=== PATIENT | female | born 1940 | race Two or more races ===

== ENCOUNTER 2020-12-16 00:53 | Inpatient (IN) | payer MEDICARE, OTHER ==
[~2020-12-16] VITALS: Ht 157.5 cm; Wt 70.3 kg
[2020-12-16 01:10] VITALS: BP 111/78
--- NOTE | 2020-12-16 01:10 | NUR ---
ED Nurse Note: Pt wheeled into ED by coreen from home d/t sudden onset edema and bruising over bilateral legs and now appearing on stomach and chest for 2 days. Pt is on dialysis tuesdays and Saturdays, last dialysis tuesdays. Pt is AAOx3, breathing even and unlabored, left leg +3 pitting edema, right leg +1 pitting edema. Pt able to move bilateral extremities. Denies pain, denies tingling. Tachycardic on monitor HR 120s, EDMD aware
--- NOTE | 2020-12-16 01:16 | Emergency Room Report ---
History of Present Illness General Chief Complaint: Edema Present Illness HPI 80-year-old female with a history of end-stage renal disease on dialysis Friday and Friday, hypertension, hyperlipidemia here with diffuse bruising. Patient's daughter says the patient last underwent dialysis on Friday, 4 days ago. Over the past 2 days the patient's daughter has noticed that the patient has been suffering from worsening nontraumatic bruising throughout her body. The bruising is worse in the lower extremity, particularly in the left lower extremity. There has been no trauma. Denies headache, vision changes, altered mental status, fevers, chills, chest pain, palpitations, shortness of breath, back pain, abdominal pain, nausea, vomiting, diarrhea, dysuria. Patient does still make urine. Allergies: Coded Allergies: No Known Allergies (Unverified , 12/16/20) COVID-19 Screening Contact w/high risk pt: No Experienced COVID-19 symptoms?: No COVID-19 Testing performed RESIDENTIAL SALES: No Nursing Documentation-PMH Hx Cardiac Problems: Yes Hx Hypertension: Yes Hx Dialysis: Yes - LUE shunt; T, Sa Review of Systems All Other Systems: negative except mentioned in HPI Physical Exam Vital Signs Date Time Temp Pulse Resp B/P (MAP) Pulse Ox O2 Delivery O2 Flow Rate FiO2 12/16/20 01:06 97.7 120 12 111/78 (89) 100 Room Air Sp02 EP Interpretation: reviewed, normal General Appearance: no apparent distress, alert, non-toxic Head: normocephalic, atraumatic Eyes: bilateral eye normal inspection, bilateral eye PERRL ENT: hearing 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, normal pharynx, no angioedema, normal voice Neck: full range of motion, supple/symm/no masses Respiratory: chest non-tender, lungs clear, normal breath sounds, speaking full sentences Cardiovascular #1: other - Diffuse edema of the lower extremities worse in the left lower extremity. Irregularly irregular rhythm, heart rate approximately 120 bpm. Left upper extremity dialysis fistula with palpable thrill Cardiovascular #2: 2+ carotid (R), 2+ carotid (L), 2+ radial (R), 2+ radial (L), 2+ dorsalis pedis (R), 2+ dorsalis pedis (L) Gastrointestinal: normal bowel sounds, non tender, soft, non-distended, no guarding, no rebound Rectal: deferred Genitourinary: normal inspection, no CVA tenderness Musculoskeletal: back normal, normal range of motion, calf tenderness, gait/station normal, other - Diffuse swelling of the left lower extremity. Calf tenderness. Positive Homans' sign Neurologic: alert, motor strength/tone normal, oriented x3, sensory intact, responsive, speech normal Psychiatric: judgement/insight normal, memory normal, mood/affect normal, no suicidal/homicidal ideation Reflexes: 3+ bicep (R), 3+ bicep (L), 3+ tricep (R), 3+ tricep (L), 3+ knee (R), 3+ knee (L) Skin: other - Multiple regions of large ecchymosis most prominent of the left lower extremity. Ecchymosis diffusely of the right lower extremity and lower abdomen. Normal musculoskeletal range of motion Lymphatic: no adenopathy Medical Decision Making Diagnostic Impression: Primary Impression: Atrial flutter with rapid ventricular response Additional Impressions: Ecchymosis Leg swelling ER Course EKG: Atrial flutter with variable AV block. Rate 101 bpm. no ischemia, intervals WNL. Rhythm strip: patient monitored for arrhythmias - no malignant dysrhythmias, runs of PVCs, nor pauses noted Chest x-ray: Cardiomegaly. Trace effusion along the right minor fissure Ultrasound left lower extremity duplex: No evidence of deep venous thrombosis Laboratory Tests Test 12/16/20 01:20 White Blood Count 6.6 K/UL (4.8-10.8) Red Blood Count 3.12 M/UL (4.20-5.40) L Hemoglobin 8.5 G/DL (12.0-16.0) L Hematocrit 28.4 % (37.0-47.0) L Mean Corpuscular Volume 91 FL (80-99) Mean Corpuscular Hemoglobin 27.3 PG (27.0-31.0) Mean Corpuscular Hemoglobin Concent 30.0 G/DL (32.0-36.0) L Red Cell Distribution Width 18.3 % (11.6-14.8) H Platelet Count 156 K/UL (150-450) Mean Platelet Volume 8.8 FL (6.5-10.1) Neutrophils (%) (Auto) 73.7 % (45.0-75.0) Lymphocytes (%) (Auto) 11.6 % (20.0-45.0) L Monocytes (%) (Auto) 8.2 % (1.0-10.0) Eosinophils (%) (Auto) 5.3 % (0.0-3.0) H Basophils (%) (Auto) 1.3 % (0.0-2.0) Haptoglobin Pending Prothrombin Time 12.8 SEC (9.30-11.50) H Prothrombin Time INR 1.2 (0.9-1.1) H Activated Partial Thromboplast Time 25 SEC (23-33) Fibrinogen 307 mg/dL (200-400) D-Dimer 4.30 mg/L FEU (0.00-0.49) H Sodium Level 135 MMOL/L (136-145) L Potassium Level 3.9 MMOL/L (3.5-5.1) Chloride Level 99 MMOL/L (98-107) Carbon Dioxide Level 24 MMOL/L (21-32) Anion Gap 12 mmol/L (5-15) Blood Urea Nitrogen 65 mg/dL (7-18) H Creatinine 7.4 MG/DL (0.55-1.30) H Estimated Glomerular Filtration Rate 5.3 mL/min (>60) Glucose Level 142 MG/DL (74-106) H Lactic Acid Level 1.70 mmol/L (0.4-2.0) Calcium Level 9.1 MG/DL (8.5-10.1) Magnesium Level 2.3 MG/DL (1.8-2.4) Total Bilirubin 0.6 MG/DL (0.2-1.0) Aspartate Amino Transferase (AST) 34 U/L (15-37) Alanine Aminotransferase (ALT) 25 U/L (12-78) Alkaline Phosphatase 175 U/L (46-116) H Total Creatine Kinase 171 U/L (26-308) Creatine Kinase MB 2.0 NG/ML (0.0-3.6) Creatine Kinase MB Relative Index 1.1 Troponin I 0.026 ng/mL (0.000-0.056) Pro-B-Type Natriuretic Peptide > 35060 pg/mL (0-125) H Total Protein 7.3 G/DL (6.4-8.2) Albumin 3.4 G/DL (3.4-5.0) Globulin 3.9 g/dL Albumin/Globulin Ratio 0.9 (1.0-2.7) L Lipase 230 U/L (73-393) Microbiology Date/Time Source Procedure Growth Status 12/16/20 01:20 Nasopharynx SARS-CoV-2 RdRp Gene Assay - Final Complete 80-year-old female here with diffuse ecchymosis of the lower extremities and abdomen. No history of trauma. On dialysis Friday and Friday only. Last dialysis was Friday. Has been complaining of leg and abdominal ecchymosis for 2 days. Not on blood thinners. No trauma. She had significant bruising and ecchymosis bilaterally worse of the left lower extremity. Ultrasound was negative for DVT. CBC found her hemoglobin to be 8.5. No previous labs available for comparison. Platelets were within the normal range at 156. Fibrinogen was normal. No signs of DIC at this time. Potassium was 3.9. EKG showed a flutter with a rate of approximately 130 bpm. She got a bolus of 10 mg IV Cardizem with good resolution of her tachycardia. Throughout her stay in the emergency department her heart rate gradually increased again to around 120 bpm. She was given 60 mg of p.o. Cardizem. Blood pressures remained normal and she has been in no acute distress whatsoever throughout her stay. She had normal mental status and no evidence of head trauma. Troponin negative. Chest x-ray showed evidence of CHF but was otherwise normal. She had normal oxygen saturation on room air. She still makes urine and urinated just before coming to the emergency department. Millan catheter was placed and no urine has been able to be obtained at this time. Her daughter says that the patient was complaining of some dysuria. She was given ceftriaxone for suspected urinary tract infection. Rapid Covid test negative in the emergency department. Patient to be admitted to telemetry. Last Vital Signs Date Time Temp Pulse Resp B/P (MAP) Pulse Ox O2 Delivery O2 Flow Rate FiO2 12/16/20 01:06 97.7 120 12 111/78 (89) 100 Room Air Referrals: NOT CHOSEN ERIC/,REFERRING (PCP) Vinny Conn M.D. Dec 16, 2020 01:16
--- NOTE | 2020-12-16 01:20 | NUR ---
ED Nurse Note: blood, cultures, lactic sent to lab
[2020-12-16] MEDS ORDERED: dilTIAZem HCl 25mg/5ml Inj IVP ONE (01:30)
[2020-12-16 01:38] LABS: BASOPHILS % (AUTO) 1.3 % (0.0-2.0); EOSINOPHILS % (AUTO) 5.3 % (0.0-3.0); HEMATOCRIT 28.4 % (37.0-47.0); HEMOGLOBIN 8.5 G/DL (12.0-16.0); LYMPHOCYTES % (AUTO) 11.6 % (20.0-45.0); MEAN CORPUSCULAR VOLUME 91 FL (80-99); MONOCYTES % (AUTO) 8.2 % (1.0-10.0); NEUTROPHILS % (AUTO) 73.7 % (45.0-75.0); PLATELET COUNT 156 K/UL (150-450); RED BLOOD COUNT 3.12 M/UL (4.20-5.40); RED CELL DISTRIBUTION WIDTH 18.3 % (11.6-14.8); WHITE BLOOD COUNT 6.6 K/UL (4.8-10.8)
[2020-12-16 01:49] LABS: ANION GAP 12 mmol/L (5-15); BLOOD UREA NITROGEN 65 mg/dL (7-18); CALCIUM 9.1 MG/DL (8.5-10.1); CARBON DIOXIDE 24 MMOL/L (21-32); CHLORIDE 99 MMOL/L (98-107); CREATININE 7.4 MG/DL (0.55-1.30); POTASSIUM 3.9 MMOL/L (3.5-5.1); SODIUM 135 MMOL/L (136-145)
[2020-12-16 02:00] LABS: INR 1.2 (0.9-1.1)
[2020-12-16 02:02] LABS: ALANINE AMINOTRANSFERASE 25 U/L (12-78); ALBUMIN 3.4 G/DL (3.4-5.0); ALBUMIN/GLOBULIN RATIO 0.9 (1.0-2.7); ASPARTATE AMINO TRANSFERASE 34 U/L (15-37); BILIRUBIN,TOTAL 0.6 MG/DL (0.2-1.0); CREATINE KINASE 171 U/L (26-308)
--- NOTE | 2020-12-16 02:06 | NUR ---
ED Nurse Note: Kamila Mcpherson ([facility]) .
--- NOTE | 2020-12-16 02:09 | NUR ---
ED Nurse Note: COVID swab sent to lab
[2020-12-16] MEDS ORDERED: DiphenhydrAMINE 50mg/ml Inj ONE (02:13)
[2020-12-16] MEDS ORDERED: METOPROLOL SUCC25 MG ORAL (02:14)
[2020-12-16] MEDS ORDERED: LEXAPRO10 MG ORAL (02:14)
[2020-12-16] MEDS ORDERED: FISH OIL 1,0001 EAC1 ORAL (02:14)
[2020-12-16] MEDS ORDERED: DONEPEZIL HCL10 M2 ORAL (02:14)
[2020-12-16] MEDS ORDERED: CENTRUM SILVER1 EAC4 PO (02:15)
[2020-12-16] MEDS ORDERED: ACETAMINOPHEN500 M3 ORAL (02:15)
[2020-12-16] MEDS ORDERED: LORazepam Inj 2mg/ml 1ml IV ONE (02:15)
[2020-12-16] MEDS ORDERED: CALCIUM ACETAT667 M2 PO (02:15)
[2020-12-16] MEDS ORDERED: DiphenhydrAMINE 50mg/ml Inj IVP ONE (02:15)
[2020-12-16] MEDS ORDERED: AMLODIPINE BESY10 MG ORAL (02:15)
[2020-12-16] MEDS ORDERED: NAMENDA10 MG ORAL (02:15)
[2020-12-16] MEDS ORDERED: AMIODARONE HCL200 MG ORAL (02:15)
[2020-12-16] MEDS ORDERED: ATORVASTATIN CA40 MG ORAL (02:16)
[2020-12-16] MEDS ORDERED: ISOSORBIDE MONO30 M1 PO (02:16)
[2020-12-16] MEDS ORDERED: ASPIRIN-LOW81 MG ORAL (02:16)
[2020-12-16] MEDS ORDERED: OMEPRAZOLE40 M1 ORAL (02:17)
[2020-12-16 02:27] LABS: ALKALINE PHOSPHATASE 175 U/L (46-116)
--- NOTE | 2020-12-16 02:44 | NUR ---
ED Nurse Note: US tech at bedside
[2020-12-16] MEDS ORDERED: dilTIAZem HCl 60mg tab ORAL ONE (03:00)
--- NOTE | 2020-12-16 03:00 | NUR ---
NURSE NOTES: Received admission orders from Dr. Drew and all orders executed as in indicated.Dr. Gonzalez on consult for dialysis as indicated
--- NOTE | 2020-12-16 03:05 | Diagnostic Imaging Report ---
EXAM: XR Chest, 1 View CLINICAL HISTORY: AMS TECHNIQUE: Frontal view of the chest. COMPARISON: No relevant prior studies available. FINDINGS: Lungs: Trace effusion along the right minor fissure. Heart: cardiomegaly. Bones/joints: No acute findings. IMPRESSION: Cardiomegaly. Trace effusion along the right minor fissure.
--- NOTE | 2020-12-16 03:06 | NUR ---
ED Nurse Note: VRE, CRE, MRSA sent to lab
[2020-12-16] MEDS ORDERED: cefTRIAXone 1 GM in NS 55 ML IVPB ONE (03:15)
--- NOTE | 2020-12-16 03:20 | Diagnostic Imaging Report ---
EXAM: US Duplex Left Lower Extremity Veins CLINICAL HISTORY: PAIN TECHNIQUE: Real-time duplex ultrasound scan of the left lower extremity veins integrating B-mode two-dimensional vascular structure, Doppler spectral analysis, color flow Doppler imaging and compression. COMPARISON: No relevant prior studies available. FINDINGS: Deep veins: No DVT in the visualized common femoral, femoral, proximal deep femoral or popliteal veins. The veins demonstrate normal color flow, are normally compressible, with normal phasic flow and/or augmentation response. Superficial veins: No thrombus in the visualized great saphenous vein. Soft tissues: Partially visualized Miramontes's cyst is present with no measurement given but approximately 4 cm. IMPRESSION: 1. Difficult study due to leg movement during exam. 2. No DVT. 3. Partially visualized Miramontes's cyst is present with no measurement given but approximately 4 cm.
--- NOTE | 2020-12-16 03:33 | NUR ---
HAND-OFF: Report given to ZEKE Coronado.
--- NOTE | 2020-12-16 03:39 | NUR ---
NURSE NOTES: The patient is awake, non-verbal, noted with confusion and mild anxiety. A calm environment was provided as indicated.The patient is general weak, she is on room air saturating at 94%. The patient is also congested with decreasing lungs sound at the base bilaterally. The skin is edematoes +3 edema noted in the bilateral lower leg. She was noted with bruises in the inner thigh and perinal area. pictures taken and will be uploaded. The patient bilateral lower legs also has discoloration extending to the abdomen. She was admitted with a Millan catheter with no urine output noted. She also has a RFA 22 g IV line that is patent and asymptomatic. The bed in low level and call light within reach. will continue to monitor as indicated
[2020-12-16 04:00] VITALS: BP 85/68
--- NOTE | 2020-12-16 04:45 | NUR ---
TRANSFER TO FLOOR: Patient transferred to tele via gurney accompanied by RN and EMT staff as ordered, per EDMD Fabien. Report given to ZEKE Coronado. Belongings and admission packet given to ZEKE Coronado. Family and or S/O informed of transfer.
--- NOTE | 2020-12-16 06:57 | NUR ---
NURSE NOTES: The patient was able to fall asleep without any difficulty. The respiration remained at room air. will continue to monitor
--- NOTE | 2020-12-16 07:14 | NUR ---
NURSE HAND-OFF REPORT: Important Events on Shift:Alert and stable Patient Status: Diet: Pending Orders: Pending Results/Labs: Pending MD notification: Latest Vital Signs: Temperature 98.8 , Pulse 120 , B/P 137 /72 , Respiratory Rate 18 , O2 SAT 100 , Room Air, O2 Flow Rate . Vital Sign Comment: EKG Rhythm: Atrial Flutter Rhythm change?: N MD Notified?: - MD Response: Latest Huizar Fall Score: 70 Fall Risk: High Risk Safety Measures: Call light Within Reach, Bed Alarm Zone 1, Side Rails Side Rails x2, Bed position Low and Locked. Fall Precautions: Yellow Socks Yellow Gown Door Sign Patient Fall Education Report given to .
--- NOTE | 2020-12-16 07:30 | NUR ---
NURSE NOTES: Received report from Cliff/RN. Pt in bed sleeping, on room air, no distress or SOB noted. Pt was admitted around 0300. Dialysis patient, left UA AV shunt for dialysis. IV on right FA 22G, SL, patent and clean. Bed in the lowest position and locked, call light within reach, encouraged to use when needed. Side rail up X3. Will continue plan of care.
[2020-12-16 08:00] VITALS: BP 114/60
[2020-12-16 12:00] VITALS: BP 100/72
[2020-12-16] MEDS ORDERED: Metoprolol Succinate XL 25mg tab ORAL SCH (15:00)
[2020-12-16] MEDS: Amiodarone 200mg tab ORAL SCH ×2 (15:13→21:13)
--- NOTE | 2020-12-16 15:14 | Consultation ---
DATE OF CONSULTATION: 12/16/2020 NEPHROLOGY CONSULTATION CONSULTING PHYSICIAN: Hussein Gonzalez M.D. ATTENDING PHYSICIAN: Maicol Sandoval M.D. REASON FOR CONSULTATION: This is a dialysis patient. HISTORY OF PRESENT ILLNESS: This is an 80-year-old female who dialyzes at the [facility]. Her lathe operator is Dr. Menjivar. I spoke to the patient's daughter,and information is retrieved from her. The patient is confused and unable to give any information. Her dialysis regimen is Friday, , Friday. The patient was admitted due to shortness of breath. The patient has developed rapid atrial fibrillation and she is on telemetry. PAST MEDICAL HISTORY: 1. 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 2. Hypertensive cardiovascular disease. 3. Hyperlipidemia. MEDICATIONS: IV ceftriaxone, Tylenol p.r.n., diltiazem, Benadryl p.r.n., lorazepam p.r.n., Protonix. Home medications currently are not available. ALLERGIES: No known allergies. FAMILY HISTORY: Unremarkable. SOCIAL HISTORY: She lives at home. HABITS: She is a nonsmoker, nondrinker. There is no history of illicit drug abuse. REVIEW OF SYSTEMS: Currently unable to obtain. She is very confused. PHYSICAL EXAMINATION: GENERAL: This is an elderly female who is in no acute distress. VITAL SIGNS: Blood pressure 114/60, pulse 110 to 120, rapid AFib, respirations 22, temperature 96.7 Fahrenheit, oral. HEENT: The head is normocephalic and atraumatic. Pupils are equal, round, and reactive to light and accommodation. NECK: Supple. Trachea midline. There was no lymphadenopathy or thyromegaly. LUNGS: Bilateral few wheezes. HEART: Tachycardic, irregularly irregular. ABDOMEN: Soft and nontender. Bowel sounds were active. EXTREMITIES: She has 2+ ankle edema. She has a left upper arm AV fistula with thrill and bruit. LABORATORY AND ANCILLARY DATA: CBC, hematocrit 28.4, otherwise CBC within normal limits. Chemistry, sodium 135, potassium 3.9, BUN 65, creatinine 7.4, glucose 142, albumin 3.4. Chest x-ray, trace effusion along the right minor fissure, cardiomegaly, no acute findings. ASSESSMENT: 1. 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 2. Hypertensive cardiovascular disease. 3. Hyperlipidemia. 4. Rapid atrial fibrillation. PLAN: Since the patient is currently hemodynamically unstable, we will try to dialyze her when her heart rate is more stable. Thank you, Dr. Sandoval, for letting me participate in the care of this patient. Hussein Gonzalez M.D. DR: HEIDY JOB#: [id number] CC: VERONICA
--- NOTE | 2020-12-16 15:25 | History & Physical ---
History and Physical History & Physicial 80-year-old female presents with shortness of breath and rapid swab for COVID negative. The patient has developed rapid atrial fibrillation and is also on HD at an outpatient center patient confused overall PAST MEDICAL HISTORY: 1. 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 2. Hypertensive cardiovascular disease. 3. Hyperlipidemia. 4. Dementia 5. GERD MEDS reviewed and reconciled Social; at home; retired; has dementia and nonsmoker nondrinker Physical WDWN NAD clear breath sounds bilaterally without rhonchi or wheeze [id number] tachy without MRG NABS nontender no HSM no CCE nonfocal vitals with hr 120 normal vitals otherwise Laboratory Tests 12/16/20 01:20: White Blood Count 6.6, Red Blood Count 3.12L, Hemoglobin 8.5L, Hematocrit 28.4L, Mean Corpuscular Volume 91, Mean Corpuscular Hemoglobin 27.3, Mean Corpuscular Hemoglobin Concent 30.0L, Red Cell Distribution Width 18.3H, Platelet Count 156, Mean Platelet Volume 8.8, Neutrophils (%) (Auto) 73.7, Lymphocytes (%) (Auto) 11.6L, Monocytes (%) (Auto) 8.2, Eosinophils (%) (Auto) 5.3H, Basophils (%) (Auto) 1.3, Differential Total Cells Counted 100, Neutrophils % (Manual) 72, Lymphocytes % (Manual) 12L, Monocytes % (Manual) 9, Eosinophils % (Manual) 7H, Basophils % (Manual) 0, Band Neutrophils 0, Platelet Estimate Adequate, Platelet Morphology Normal, Polychromasia 1+, Hypochromasia 1+, Anisocytosis 1+, Haptoglobin [Pending], Prothrombin Time 12.8H, Prothromb Time International Ratio 1.2H, Activated Partial Thromboplast Time 25, Fibrinogen 307, D-Dimer 4.30H, Sodium Level 135L, Potassium Level 3.9, Chloride Level 99, Carbon Dioxide Level 24, Anion Gap 12, Blood Urea Nitrogen 65H, Creatinine 7.4H, Estimat Glomerular Filtration Rate 5.3, Glucose Level 142H, Lactic Acid Level 1.70, Calcium Level 9.1, Magnesium Level 2.3, Total Bilirubin 0.6, Aspartate Amino Transf (AST/SGOT) 34, Alanine Aminotransferase (ALT/SGPT) 25, Alkaline Phosphatase 175H, Total Creatine Kinase 171, Creatine Kinase MB 2.0, Creatine Kinase MB Relative Index 1.1, Troponin I 0.026, Pro-B-Type Natriuretic Peptide > 05411M, Total Protein 7.3, Albumin 3.4, Globulin 3.9, Albumin/Globulin Ratio 0.9L, Lipase 230 IMPRESSION dyspnea ESRD pleural effusion dementia chronic encephalopathy hyperglycemia anemia PLAN HD per renal resume meds monitor vitals EP to see monitor for bleeding tele care for now d/w nursing d/w consultants impression, plan, and exam edited and reviewed in detail care discussed with Maicol Noble MD Dec 16, 2020 15:25
[2020-12-16 16:00] VITALS: BP 115/62
[2020-12-16] MEDS ORDERED: Digoxin 0.5mg/2ml Inj IVP SCH (16:15)
--- NOTE | 2020-12-16 16:20 | Cardiac Electrophysiology PN ---
Subjective Subjective [id number] Objective Last 24 Hour Vital Signs Date Time Temp Pulse Resp B/P (MAP) Pulse Ox O2 Delivery O2 Flow Rate FiO2 12/16/20 15:13 120 100/72 12/16/20 12:00 96.4 81 18 100/72 (81) 92 12/16/20 12:00 120 12/16/20 09:00 Room Air 12/16/20 08:00 96.7 67 18 114/60 (78) 90 12/16/20 08:00 80 12/16/20 04:45 98.8 120 18 137/72 100 Room Air 12/16/20 04:00 98.6 120 23 85/68 (74) 94 12/16/20 04:00 120 12/16/20 03:39 Room Air 12/16/20 03:09 122 138/70 12/16/20 03:06 120 18 132/68 100 12/16/20 02:36 103 18 138/81 100 12/16/20 01:28 112 111/52 12/16/20 01:10 120 18 12/16/20 01:10 97.7 120 18 111/78 100 Room Air 12/16/20 01:06 97.7 120 12 111/78 (89) 100 Room Air Intake and Output 12/15/20 12/16/20 19:00 07:00 Intake Total 100 ml Output Total 0 ml Balance 100 ml Intake Oral 100 ml Output Urine Total 0 ml # Bowel Movements 1 Laboratory Tests Test 12/16/20 01:20 White Blood Count 6.6 K/UL (4.8-10.8) Red Blood Count 3.12 M/UL (4.20-5.40) L Hemoglobin 8.5 G/DL (12.0-16.0) L Hematocrit 28.4 % (37.0-47.0) L Mean Corpuscular Volume 91 FL (80-99) Mean Corpuscular Hemoglobin 27.3 PG (27.0-31.0) Mean Corpuscular Hemoglobin Concent 30.0 G/DL (32.0-36.0) L Red Cell Distribution Width 18.3 % (11.6-14.8) H Platelet Count 156 K/UL (150-450) Mean Platelet Volume 8.8 FL (6.5-10.1) Neutrophils (%) (Auto) 73.7 % (45.0-75.0) Lymphocytes (%) (Auto) 11.6 % (20.0-45.0) L Monocytes (%) (Auto) 8.2 % (1.0-10.0) Eosinophils (%) (Auto) 5.3 % (0.0-3.0) H Basophils (%) (Auto) 1.3 % (0.0-2.0) Differential Total Cells Counted 100 Neutrophils % (Manual) 72 % (45-75) Lymphocytes % (Manual) 12 % (20-45) L Monocytes % (Manual) 9 % (1-10) Eosinophils % (Manual) 7 % (0-3) H Basophils % (Manual) 0 % (0-2) Band Neutrophils 0 % (0-8) Platelet Estimate Adequate Platelet Morphology Normal Polychromasia 1+ Hypochromasia 1+ Anisocytosis 1+ Haptoglobin Pending Prothrombin Time 12.8 SEC (9.30-11.50) H Prothromb Time International Ratio 1.2 (0.9-1.1) H Activated Partial Thromboplast Time 25 SEC (23-33) Fibrinogen 307 mg/dL (200-400) D-Dimer 4.30 mg/L FEU (0.00-0.49) H Sodium Level 135 MMOL/L (136-145) L Potassium Level 3.9 MMOL/L (3.5-5.1) Chloride Level 99 MMOL/L (98-107) Carbon Dioxide Level 24 MMOL/L (21-32) Anion Gap 12 mmol/L (5-15) Blood Urea Nitrogen 65 mg/dL (7-18) H Creatinine 7.4 MG/DL (0.55-1.30) H Estimat Glomerular Filtration Rate 5.3 mL/min (>60) Glucose Level 142 MG/DL (74-106) H Lactic Acid Level 1.70 mmol/L (0.4-2.0) Calcium Level 9.1 MG/DL (8.5-10.1) Magnesium Level 2.3 MG/DL (1.8-2.4) Total Bilirubin 0.6 MG/DL (0.2-1.0) Aspartate Amino Transf (AST/SGOT) 34 U/L (15-37) Alanine Aminotransferase (ALT/SGPT) 25 U/L (12-78) Alkaline Phosphatase 175 U/L (46-116) H Total Creatine Kinase 171 U/L (26-308) Creatine Kinase MB 2.0 NG/ML (0.0-3.6) Creatine Kinase MB Relative Index 1.1 Troponin I 0.026 ng/mL (0.000-0.056) Pro-B-Type Natriuretic Peptide > 61465 pg/mL (0-125) H Total Protein 7.3 G/DL (6.4-8.2) Albumin 3.4 G/DL (3.4-5.0) Globulin 3.9 g/dL Albumin/Globulin Ratio 0.9 (1.0-2.7) L Lipase 230 U/L (73-393) Microbiology Date/Time Source Procedure Growth Status 12/16/20 01:20 Nasopharynx SARS-CoV-2 RdRp Gene Assay - Final Complete Devon Zuluaga MD Dec 16, 2020 16:20
[2020-12-16] MEDS: Memantine 10mg tab ORAL SCH (18:09)
--- NOTE | 2020-12-16 18:14 | Consultation ---
DATE OF CONSULTATION: 12/16/2020 CARDIAC ELECTROPHYSIOLOGY CONSULTATION CONSULTING PHYSICIAN: Devon Zuluaga MD REFERRING PHYSICIAN: Maicol Sandoval MD REASON FOR CONSULTATION: Atrial flutter with rapid ventricular response. HISTORY OF PRESENT ILLNESS: The patient is a very pleasant 80-year-old lady with history of hypertension and end-stage renal disease on hemodialysis as well as history of atrial flutter, who is already on amiodarone and metoprolol as an outpatient. The patient presented to the emergency room with diffuse bruising. This bruising is mostly in the lower extremity, mostly on the left side. The patient in the ER was noted to be tachycardic, heart rate in the 120s, and EKG confirmed atrial flutter with rapid ventricular response. REVIEW OF SYSTEMS: Negative other than what was mentioned in the history of present illness. PAST MEDICAL HISTORY: As mentioned above. FAMILY HISTORY: Noncontributory. SOCIAL HISTORY: She lives at home. Does smoke or drink alcohol. PHYSICAL EXAMINATION: VITAL SIGNS: Show blood pressure of 100/72, pulse is 120, respirations 18, and temperature 96.4. HEAD AND NECK: Shows mild JVD. LUNGS: Decreased breath sounds. CARDIOVASCULAR: Shows tachycardic, S1 and S2 with no gallop or murmur. ABDOMEN: Soft. EXTREMITIES: Bilateral ecchymosis of lower extremity, left more than right. LABORATORY DATA: Labs show white count of 6.2, hemoglobin 8.5, hematocrit 28.5, and platelet count of 156,000. Sodium 135, potassium 3.9, BUN of 64, creatinine 7.4, and glucose of 114. Troponin is negative. BNP is more than 35,000. ASSESSMENT AND PLAN: 1. Atrial flutter with rapid ventricular response. I will start the patient on digoxin 0.125 mg p.o. daily. We will check a digoxin level the day after tomorrow in view of renal failure being on dialysis as well as interaction with amiodarone. In the meantime, increase metoprolol to 50 mg b.i.d. and discontinue amlodipine. Continue amiodarone 200 mg b.i.d. The patient is off anticoagulation due to diffuse bilateral ecchymosis. Hemoglobin of 8.5. 2. End-stage renal disease, on hemodialysis. 3. Hypertension. Again, discontinue amlodipine to maximize beta-kp to b.i.d. for better rate control of atrial flutter. 4. Hyperlipidemia, on Lipitor. In the long run, the patient would benefit from atrial flutter ablation, which is truly the approach. 5. Diffuse ecchymoses of lower extremity, currently off anticoagulation. Thank you very much for allowing me to participate in the care of this patient. Please do not hesitate to contact me for any questions regarding my evaluation. Devon Zuluaga M.D. DR: Yvette JOB#: [id number] CC:
--- NOTE | 2020-12-16 19:22 | NUR ---
NURSE HAND-OFF REPORT: Important Events on Shift:Pt's HR 121 today, Dr Zuluaga is aware, medications given. Patient Status: Stable Diet: Renal Pending Orders: Pending Results/Labs: Pending MD notification: Latest Vital Signs: Temperature 97.6 , Pulse 122 , B/P 115 /62 , Respiratory Rate 20 , O2 SAT 94 , Room Air, O2 Flow Rate . Vital Sign Comment: Stable EKG Rhythm: Atrial Fibrillation Rhythm change?: N MD Notified?: - MD Response: Latest Huizar Fall Score: 70 Fall Risk: High Risk Safety Measures: Call light Within Reach, Bed Alarm Zone 1, Side Rails Side Rails x2, Bed position Low and Locked. Fall Precautions: Yellow Socks Yellow Gown Door Sign Patient Fall Education Report given to Cliff/RN.
--- NOTE | 2020-12-16 19:40 | NUR ---
NURSE NOTES: The patient is alert and oriented x2 and is verbally responsive in [place]ian. The Resp is even and unlabored and she is on room air.The patient is essentially bedbound and was noted with swelling bilateral legs that was raised up and supported with a pillow.The left upper arm has an A/v graft for dialysis.The patient has a Right FA 22g that is patent and asymptomatic. The bed in low and locked position and the call light within easy reach.Will continue to monitor as indicated
[2020-12-16 20:00] VITALS: BP 114/65
[2020-12-16] MEDS: Atorvastatin 20mg tab ORAL SCH (21:13)
[2020-12-16] MEDS: Metoprolol Tartrate 50mg tab ORAL SCH (21:13)
[2020-12-16] MEDS ORDERED: Acetaminophen 500mg (ES) tab ORAL SCH (22:00)
[2020-12-17] VITALS: BP 111/56
[2020-12-17 04:00] VITALS: BP 113/64
--- NOTE | 2020-12-17 04:10 | NUR ---
NURSE NOTES: The patient is able to sleep all night long and does 't appear to be in any distress. She was helped with turning and re-positioning as indicated.Will continue to monition as indicated
--- NOTE | 2020-12-17 07:06 | NUR ---
NURSE HAND-OFF REPORT: Important Events on Shift:Cooperative with her care and slept about 8 hrs last night Patient Status: Diet: Pending Orders: Pending Results/Labs: Pending MD notification: Latest Vital Signs: Temperature 98.6 , Pulse 107 , B/P 113 /64 , Respiratory Rate 20 , O2 SAT 93 , Room Air, O2 Flow Rate . Vital Sign Comment: EKG Rhythm: Atrial Fibrillation Rhythm change?: N MD Notified?: - MD Response: Latest Huizar Fall Score: 70 Fall Risk: High Risk Safety Measures: Call light Within Reach, Bed Alarm Zone 1, Side Rails Side Rails x2, Bed position Low and Locked. Fall Precautions: Yellow Socks Yellow Gown Door Sign Patient Fall Education Report given to .
--- NOTE | 2020-12-17 07:16 | NUR ---
NURSE NOTES: Received report from Cliff/RN. Pt in bed sleeping, on room air, no distress or SOB noted. Patient's HR improved during the night 102-103. Dialysis patient, left UA AV shunt for dialysis. IV on right FA 22G, SL, patent and clean. Bed in the lowest position and locked, call light within reach, encouraged to use when needed. Side rail up X3. Will continue plan of care.
[2020-12-17 07:48] LABS: BASOPHILS % (AUTO) 0.8 % (0.0-2.0); EOSINOPHILS % (AUTO) 4.5 % (0.0-3.0); HEMATOCRIT 27.4 % (37.0-47.0); HEMOGLOBIN 8.3 G/DL (12.0-16.0); LYMPHOCYTES % (AUTO) 15.1 % (20.0-45.0); MEAN CORPUSCULAR VOLUME 91 FL (80-99); MONOCYTES % (AUTO) 9.9 % (1.0-10.0); NEUTROPHILS % (AUTO) 69.7 % (45.0-75.0); PLATELET COUNT 152 K/UL (150-450); RED BLOOD COUNT 3.02 M/UL (4.20-5.40); RED CELL DISTRIBUTION WIDTH 18.2 % (11.6-14.8); WHITE BLOOD COUNT 5.1 K/UL (4.8-10.8)
[2020-12-17 08:00] VITALS: BP 125/54
[2020-12-17 08:21] LABS: CALCIUM 8.8 MG/DL (8.5-10.1); CREATININE 8.1 MG/DL (0.55-1.30); POTASSIUM 4.9 MMOL/L (3.5-5.1)
[2020-12-17] MEDS ORDERED: Heparin Sod 1000 units/ml 10ml IV PRN (09:00)
[2020-12-17] MEDS: Metoprolol Tartrate 50mg tab ORAL SCH ×2 (09:00→20:43)
[2020-12-17] MEDS: Aspirin EC 81mg tab ORAL SCH (09:10)
[2020-12-17] MEDS: Donepezil 10mg tab ORAL SCH (09:10)
[2020-12-17] MEDS: Memantine 10mg tab ORAL SCH ×2 (09:10→17:24)
[2020-12-17] MEDS: Amiodarone 200mg tab ORAL SCH ×2 (09:11→20:43)
[2020-12-17] MEDS: cefTRIAXone 1gm/D5W 55ml IVPB SCH ×2 (09:13)
[2020-12-17] MEDS: Digoxin 0.125mg tab ORAL SCH (09:13)
--- NOTE | 2020-12-17 09:15 | NUR ---
PT EVALUATION NOTE Patient seen for initial evaluation and treatment initiated. Patient presents with decreased LE strength and balance which impairs patient's ability to perform mobility skills safely. Patient requires min assist for bed mobility and mod assist for transfers with FWW. Patient able to take small steps from the bed to the bedside chair with min/mod assist and FWW. Patient will benefit from skilled inpatient PT intervention to increase strength and postural stability for improved level of functional mobility and safety. Recommend discharge to SNF for continued rehab vs home with home PT and family assistance depending on patient's progress. Addendum: 12/17/20 at 1007 by RAMÓN SALES PT Amended: Links added.
--- NOTE | 2020-12-17 09:23 | General Progress Note ---
Subjective ROS Limited/Unobtainable: No Constitutional: Reports: malaise, weakness HEENT: Reports: no symptoms Cardiovascular: Reports: no symptoms Respiratory: Reports: no symptoms Gastrointestinal/Abdominal: Reports: no symptoms Genitourinary: Reports: no symptoms Neurologic/Psychiatric: Reports: no symptoms Endocrine: Reports: no symptoms Hematologic/Lymphatic: Reports: no symptoms Allergies: Coded Allergies: No Known Allergies (Unverified , 12/16/20) All Systems: reviewed and negative except above Subjective no events. w/o complaints. eating breakfast. tolerating pos. converted back to sinus. denies chest pain or sob Objective Last 24 Hour Vital Signs Date Time Temp Pulse Resp B/P (MAP) Pulse Ox O2 Delivery O2 Flow Rate FiO2 12/17/20 09:13 95 12/17/20 09:00 95 125/54 12/17/20 04:00 98.6 107 20 113/64 (80) 93 12/17/20 04:00 107 12/17/20 00:00 104 12/17/20 00:00 98.1 104 18 111/56 (74) 92 12/16/20 21:13 116 114/65 12/16/20 21:00 Room Air 12/16/20 20:00 98.8 116 21 114/65 (81) 94 12/16/20 20:00 99 12/16/20 16:40 122 12/16/20 16:00 97.6 121 20 115/62 (79) 94 12/16/20 16:00 121 12/16/20 15:13 120 100/72 12/16/20 12:00 96.4 81 18 100/72 (81) 92 12/16/20 12:00 120 Intake and Output 12/16/20 12/17/20 19:00 07:00 Intake Total 420 ml 330 ml Balance 420 ml 330 ml Intake Oral 420 ml 330 ml # Voids 1 1 Laboratory Tests 12/17/20 07:10: White Blood Count 5.1, Red Blood Count 3.02L, Hemoglobin 8.3L, Hematocrit 27.4L, Mean Corpuscular Volume 91, Mean Corpuscular Hemoglobin 27.6, Mean Corpuscular Hemoglobin Concent 30.4L, Red Cell Distribution Width 18.2H, Platelet Count 152, Mean Platelet Volume 8.1, Neutrophils (%) (Auto) 69.7, Lymphocytes (%) (Auto) 15.1L, Monocytes (%) (Auto) 9.9, Eosinophils (%) (Auto) 4.5H, Basophils (%) (Auto) 0.8, Sodium Level 134L, Potassium Level 4.9, Chloride Level 99, Carbon Dioxide Level 22, Anion Gap 13, Blood Urea Nitrogen 67H, Creatinine 8.1H, Estimat Glomerular Filtration Rate 4.7, Glucose Level 80, Calcium Level 8.8, Troponin I 0.025, Thyroid Stimulating Hormone (TSH) 2.379, Free Thyroxine 1.17, Digoxin Level 1.3 Height (Feet): 5 Height (Inches): 2.00 Weight (Pounds): 155 General Appearance: WD/WN, alert Neck: supple Cardiovascular: regular rhythm Respiratory/Chest: lungs clear Abdomen: normal bowel sounds, non tender, soft, no organomegaly Edema: no edema noted Arm (L), no edema noted Arm (R) 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, no motor/sensory deficits, alert, responsive Skin: normal pigmentation Assessment/Plan Problem List: (1) Hypertension ICD Codes: I10 - Essential (primary) hypertension SNOMED: 11660863 (2) Hyperlipidemia ICD Codes: E78.5 - Hyperlipidemia, unspecified SNOMED: 31544620 (3) ESRD (end-stage renal disease) due to SLE ICD Codes: M32.14 - Glomerular disease in systemic lupus erythematosus; N18.6 - End stage renal disease SNOMED: 62334582, 87552981 (4) Atrial flutter with rapid ventricular response ICD Codes: I48.92 - Unspecified atrial flutter SNOMED: 4708309, 8490561 Status: stable Assessment/Plan: tele amiodarone antiplt rx iv abx monitor cxr dvt/stress ulcer prophylaxis Anil Reynoso MD Dec 17, 2020 09:22
--- NOTE | 2020-12-17 09:45 | NUR ---
NURSE NOTES: Called Dr Sandoval to let him know pt has blood in her urine. Urinalysis was ordered, collected by the nurse.
[2020-12-17 11:46] LABS: APPEARANCE,URINE TURBID; BILIRUBIN, URINE NEGATIVE (NEGATIVE); GLUCOSE, URINE (UA) 1+ (NEGATIVE); KETONES,URINE NEGATIVE (NEGATIVE); LEUKOCYTE ESTERASE ,URINE 1+ (NEGATIVE); NITRITE,URINE NEGATIVE (NEGATIVE); PH,URINE 8 (4.5-8.0); PROTEIN,URINE 4+ (NEGATIVE); UROBILINOGEN,URINE NORMAL MG/DL (0.0-1.0)
[2020-12-17 11:47] LABS: COLOR,URINE RED
[2020-12-17 12:00] VITALS: BP 118/57
--- NOTE | 2020-12-17 13:26 | Pulmonology Progress Note ---
Subjective ROS Limited/Unobtainable: No Allergies: Coded Allergies: No Known Allergies (Unverified , 12/16/20) All Systems: reviewed and negative except above Subjective care noted no distress in afib on monitor Objective Last 24 Hour Vital Signs Date Time Temp Pulse Resp B/P (MAP) Pulse Ox O2 Delivery O2 Flow Rate FiO2 12/17/20 12:00 101 12/17/20 12:00 97.4 114 18 118/57 (77) 96 12/17/20 09:13 95 12/17/20 09:00 95 125/54 12/17/20 09:00 Room Air 12/17/20 08:00 118 12/17/20 08:00 98.7 95 19 125/54 (77) 93 12/17/20 04:00 98.6 107 20 113/64 (80) 93 12/17/20 04:00 107 12/17/20 00:00 104 12/17/20 00:00 98.1 104 18 111/56 (74) 92 12/16/20 21:13 116 114/65 12/16/20 21:00 Room Air 12/16/20 20:00 98.8 116 21 114/65 (81) 94 12/16/20 20:00 99 12/16/20 16:40 122 12/16/20 16:00 97.6 121 20 115/62 (79) 94 12/16/20 16:00 121 12/16/20 15:13 120 100/72 Intake and Output 12/16/20 12/17/20 19:00 07:00 Intake Total 420 ml 330 ml Balance 420 ml 330 ml Intake Oral 420 ml 330 ml # Voids 1 1 Objective WDWN NAD clear breath sounds bilaterally without rhonchi or wheeze S1S2 iRRR without MRG NABS nontender no CCE nonfocal Microbiology Date/Time Source Procedure Growth Status 12/16/20 01:20 Nasopharynx SARS-CoV-2 RdRp Gene Assay - Final Complete Laboratory Tests 12/17/20 07:10: White Blood Count 5.1, Red Blood Count 3.02L, Hemoglobin 8.3L, Hematocrit 27.4L, Mean Corpuscular Volume 91, Mean Corpuscular Hemoglobin 27.6, Mean Corpuscular Hemoglobin Concent 30.4L, Red Cell Distribution Width 18.2H, Platelet Count 152, Mean Platelet Volume 8.1, Neutrophils (%) (Auto) 69.7, Lymphocytes (%) (Auto) 15.1L, Monocytes (%) (Auto) 9.9, Eosinophils (%) (Auto) 4.5H, Basophils (%) (Auto) 0.8, Sodium Level 134L, Potassium Level 4.9, Chloride Level 99, Carbon Dioxide Level 22, Anion Gap 13, Blood Urea Nitrogen 67H, Creatinine 8.1H, Estimat Glomerular Filtration Rate 4.7, Glucose Level 80, Calcium Level 8.8, Troponin I 0.025, Thyroid Stimulating Hormone (TSH) 2.379, Free Thyroxine 1.17, Digoxin Level 1.3 12/17/20 09:50: Urine Color Red, Urine Appearance Turbid, Urine pH 8, Urine Specific [place] 1.010, Urine Protein 4+H, Urine Glucose (UA) 1+H, Urine Ketones Negative, Urine Blood 5+H, Urine Nitrite Negative, Urine Bilirubin Negative, Urine Urobilinogen Normal, Urine Leukocyte Esterase 1+H, Urine RBC TntcH, Urine WBC 2-4, Urine Squamous Epithelial Cells Few, Urine Bacteria Few 12/17/20 12:45: Hepatitis B Surface Antigen [Pending] Current Medications Medications (Trade) Dose Ordered Sig/Mohit Route PRN Reason Start Time Stop Time Status Last Admin Dose Admin Acetaminophen (Tylenol) 650 mg Q4H PRN ORAL Mild Pain (Pain Scale 1-3) 12/16/20 06:45 01/15/21 06:44 Al Hydroxide/Mg Hydroxide (Mylanta) 30 ml Q4H PRN ORAL Abdominal cramps 12/16/20 06:45 01/15/21 06:44 Amiodarone HCl (Cordarone) 200 mg EVERY 12 HOURS ORAL 12/16/20 15:00 03/16/21 14:59 12/17/20 09:11 Aspirin (Ecotrin) 81 mg DAILY ORAL 12/17/20 09:00 01/31/21 08:59 12/17/20 09:10 Atorvastatin Calcium (Lipitor) 40 mg BEDTIME ORAL 12/16/20 21:00 03/16/21 20:59 12/16/20 21:13 Ceftriaxone Sodium 1 gm/ Dextrose 55 ml @ 110 mls/hr DAILY IVPB 12/17/20 09:00 12/24/20 08:59 12/17/20 09:13 Digoxin (Lanoxin) 0.125 mg DAILY ORAL 12/17/20 09:00 03/17/21 08:59 12/17/20 09:13 Donepezil HCl (Aricept) 10 mg DAILY ORAL 12/17/20 09:00 01/16/21 08:59 12/17/20 09:10 Escitalopram Oxalate (Lexapro) 5 mg DAILY ORAL 12/16/20 15:00 01/15/21 14:59 12/17/20 09:14 Heparin Sodium (Porcine) (Heparin Sod 1000 units/ml 10ml) 2,000 unit ONCE PRN IV dialysis 12/17/20 09:00 12/17/20 23:59 Memantine (Namenda) 10 mg TWICE A DAY ORAL 12/16/20 18:00 01/15/21 17:59 12/17/20 09:10 Metoprolol Tartrate (Lopressor) 50 mg Q12HR ORAL 12/16/20 21:00 03/16/21 20:59 12/16/20 21:13 Pantoprazole (Protonix) 40 mg DAILY ORAL 12/16/20 09:00 01/15/21 08:59 12/17/20 09:10 Sodium Chloride 1,000 ml @ 500 mls/hr Q2H PRN IVLG sbp<90 during hd 12/17/20 09:00 12/17/20 23:59 Assessment/Plan Assessment/Plan IMPRESSION dyspnea ESRD pleural effusion dementia chronic encephalopathy hyperglycemia anemia afib cardiomegaly PLAN HD per renal resume meds monitor vitals EP to see monitor for bleeding tele care for now d/w nursing d/w consultants rate control nutrition monitor fluid status impression, plan, and exam edited and reviewed in detail care discussed with Maicol Noble MD Dec 17, 2020 13:26
[2020-12-17 16:00] VITALS: BP 115/46
--- NOTE | 2020-12-17 16:06 | Nephrology Progress Note ---
Assessment/Plan Plan A. Fib - per Card. ESRD - HD today Subjective Subjective No new c/o Objective Objective Last 24 Hour Vital Signs Date Time Temp Pulse Resp B/P (MAP) Pulse Ox O2 Delivery O2 Flow Rate FiO2 12/17/20 12:00 101 12/17/20 12:00 97.4 114 18 118/57 (77) 96 12/17/20 09:13 95 12/17/20 09:00 95 125/54 12/17/20 09:00 Room Air 12/17/20 08:00 118 12/17/20 08:00 98.7 95 19 125/54 (77) 93 12/17/20 04:00 98.6 107 20 113/64 (80) 93 12/17/20 04:00 107 12/17/20 00:00 104 12/17/20 00:00 98.1 104 18 111/56 (74) 92 12/16/20 21:13 116 114/65 12/16/20 21:00 Room Air 12/16/20 20:00 98.8 116 21 114/65 (81) 94 12/16/20 20:00 99 12/16/20 16:40 122 Intake and Output 12/16/20 12/17/20 19:00 07:00 Intake Total 420 ml 330 ml Balance 420 ml 330 ml Intake Oral 420 ml 330 ml # Voids 1 1 Laboratory Tests 12/17/20 07:10: White Blood Count 5.1, Red Blood Count 3.02L, Hemoglobin 8.3L, Hematocrit 27.4L, Mean Corpuscular Volume 91, Mean Corpuscular Hemoglobin 27.6, Mean Corpuscular Hemoglobin Concent 30.4L, Red Cell Distribution Width 18.2H, Platelet Count 152, Mean Platelet Volume 8.1, Neutrophils (%) (Auto) 69.7, Lymphocytes (%) (Auto) 15.1L, Monocytes (%) (Auto) 9.9, Eosinophils (%) (Auto) 4.5H, Basophils (%) (Auto) 0.8, Sodium Level 134L, Potassium Level 4.9, Chloride Level 99, Carbon Dioxide Level 22, Anion Gap 13, Blood Urea Nitrogen 67H, Creatinine 8.1H, Estimat Glomerular Filtration Rate 4.7, Glucose Level 80, Calcium Level 8.8, Troponin I 0.025, Thyroid Stimulating Hormone (TSH) 2.379, Free Thyroxine 1.17, Digoxin Level 1.3 12/17/20 09:50: Urine Color Red, Urine Appearance Turbid, Urine pH 8, Urine Specific [place] 1.0 10, Urine Protein 4+H, Urine Glucose (UA) 1+H, Urine Ketones Negative, Urine Blood 5+H, Urine Nitrite Negative, Urine Bilirubin Negative, Urine Urobilinogen Normal, Urine Leukocyte Esterase 1+H, Urine RBC TntcH, Urine WBC 2-4, Urine Squamous Epithelial Cells Few, Urine Bacteria Few 12/17/20 12:45: Hepatitis B Surface Antigen [Pending] Height (Feet): 5 Height (Inches): 2.00 Weight (Pounds): 155 Objective CV Irr Lungs CTA Abd SNT. BS + E No CCE Hussein Gonzalez MD Dec 17, 2020 16:06
--- NOTE | 2020-12-17 19:17 | NUR ---
NURSE HAND-OFF REPORT: Important Events on Shift:Pt had dialysis today. Patient Status: Restless Diet: Renal Pending Orders: Pending Results/Labs: Pending MD notification: Latest Vital Signs: Temperature 97.1 , Pulse 79 , B/P 115 /46 , Respiratory Rate 18 , O2 SAT 93 , Room Air, O2 Flow Rate . Vital Sign Comment: Stable EKG Rhythm: Atrial Fibrillation Rhythm change?: N MD Notified?: - MD Response: Latest Huizar Fall Score: 70 Fall Risk: High Risk Safety Measures: Call light Within Reach, Bed Alarm Zone 1, Side Rails Side Rails x2, Bed position Low and Locked. Fall Precautions: Yellow Socks Yellow Gown Door Sign Patient Fall Education Report given to Alexandra/ZEKE.
--- NOTE | 2020-12-17 19:23 | NUR ---
NURSE NOTES: Report received from ZEKE Hardin. Patient is awake on bed, alert and oriented x 2. traffic monitor specialist is in place, shows afib with HR of 90's. On renal diet, instructed and amenable. On room air, sating 95-96% with no shortness of breath reported. Patient is ambulatory but needs assistance, fall prevention instructed. IV site is on right forearm g-22 saline locked that is patent and intact. IV access is on left upper arm AV shunt. Safety measures are in place, bed in lowest and locked position, side rails up x 2, call light button and bedside table within reach, instructed to call for any assistance needed. Will continue plan of care.
[2020-12-17 20:00] VITALS: BP 124/69
[2020-12-17] MEDS: Atorvastatin 20mg tab ORAL SCH (20:43)
[2020-12-18] VITALS: BP 125/52
--- NOTE | 2020-12-18 00:10 | NUR ---
NURSE NOTES: Blood pressure has been stable, no desaturation on room air and no chest pain complaints. Patient was able to reposition by herself.
--- NOTE | 2020-12-18 03:05 | NUR ---
NURSE NOTES: Patient had a BM, soft, brownish and in moderate amount, noted that there's a blood on it, will order OBS. Will closely monitor.
[2020-12-18 04:00] VITALS: BP 118/65
--- NOTE | 2020-12-18 06:22 | NUR ---
NURSE NOTES: Informed Dr. Sandoval about the blood on patient's BM, awaiting for additional orders.
--- NOTE | 2020-12-18 06:30 | NUR ---
NURSE NOTES: Dr. Sandoval ordered CBC, will carry out.
--- NOTE | 2020-12-18 07:38 | NUR ---
NURSE HAND-OFF REPORT: Important Events on Shift: Patient had a BM with blood on it, sample collected and sent to lab. Blood pressure has been stable and no SOB noted the whole shift Patient Status: Patient is awake on bed in stable condition. Plan of care endorsed. Diet: Renal diet Pending Orders: none Pending Results/Labs:AM lab result Pending MD notification:none Latest Vital Signs: Temperature 97.6 , Pulse 96 , B/P 118 /65 , Respiratory Rate 16 , O2 SAT 94 , Room Air, O2 Flow Rate . Vital Sign Comment: stable EKG Rhythm: Afib/Aflutter Rhythm change?: N MD Notified?: - MD Response: Latest Huizar Fall Score: 75 Fall Risk: High Risk Safety Measures: Call light Within Reach, Bed Alarm Zone 1, Side Rails Side Rails x2, Bed position Low and Locked. Fall Precautions: Yellow Socks Yellow Gown Door Sign Patient Fall Education Report given to ZEKE Hernandez.
--- NOTE | 2020-12-18 07:58 | NUR ---
CASE MANAGEMENT: 80 YR OLD FEMALE FROM HOME TO ER CC: SUDDEN ONSET BLE PAIN,SWELLING, EDEMA AND BRUISING PMH: ESRD ON HD SI: AFLUTTER W/RVR. LEG SWELLING. ECCHYMOSIS 97.7 120 12 111/78 100% ON RA BUN+65 CR+7.4 IS: IV CARDIZEM 500CC NS BOLUS VENOUS DUPLEX CXR BLOOD CX : TO TELEMETRY DCP: FROM HOME
[2020-12-18 08:00] VITALS: BP 127/67
[2020-12-18] MEDS: Digoxin 0.125mg tab ORAL SCH (09:56)
[2020-12-18] MEDS: Amiodarone 200mg tab ORAL SCH ×2 (09:56→20:49)
[2020-12-18] MEDS: Donepezil 10mg tab ORAL SCH (09:56)
[2020-12-18] MEDS: Aspirin EC 81mg tab ORAL SCH (09:56)
[2020-12-18] MEDS: Memantine 10mg tab ORAL SCH ×2 (09:56→17:44)
[2020-12-18] MEDS: cefTRIAXone 1gm/D5W 55ml IVPB SCH ×2 (09:57)
[2020-12-18] MEDS: Metoprolol Tartrate 50mg tab ORAL SCH ×2 (10:06→20:48)
--- NOTE | 2020-12-18 11:16 | General Progress Note ---
Subjective ROS Limited/Unobtainable: No Constitutional: Reports: malaise, weakness HEENT: Reports: no symptoms Cardiovascular: Reports: no symptoms Respiratory: Reports: no symptoms Gastrointestinal/Abdominal: Reports: no symptoms Genitourinary: Reports: no symptoms Neurologic/Psychiatric: Reports: no symptoms Endocrine: Reports: no symptoms Hematologic/Lymphatic: Reports: no symptoms Allergies: Coded Allergies: No Known Allergies (Unverified , 12/16/20) All Systems: reviewed and negative except above Subjective no events. w/o complaints. tolerating pos. denies chest pain or sob. back in afib. rate controlled. Objective Last 24 Hour Vital Signs Date Time Temp Pulse Resp B/P (MAP) Pulse Ox O2 Delivery O2 Flow Rate FiO2 12/18/20 10:06 97 127/67 12/18/20 09:56 97 12/18/20 08:00 81 12/18/20 08:00 98.2 97 18 127/67 (87) 94 12/18/20 04:00 97.6 108 16 118/65 (82) 94 12/18/20 04:00 96 12/18/20 00:00 97.8 92 16 125/52 (76) 91 12/18/20 00:00 90 12/17/20 21:00 Room Air 12/17/20 20:43 120 124/69 12/17/20 20:00 98.5 120 18 124/69 (87) 98 12/17/20 20:00 90 12/17/20 16:00 79 12/17/20 16:00 97.1 91 18 115/46 (69) 93 12/17/20 12:00 101 12/17/20 12:00 97.4 114 18 118/57 (77) 96 Intake and Output 12/17/20 12/18/20 19:00 07:00 Intake Total 540 ml Output Total 2050 ml Balance -1510 ml Intake Oral 540 ml Output Urine Total 50 ml Hemodialysis UF 2000 ml # Bowel Movements 2 1 Laboratory Tests 12/17/20 12:45: Hepatitis B Surface Antigen [Pending] 12/18/20 03:40: Stool Occult Blood Negative Height (Feet): 5 Height (Inches): 2.00 Weight (Pounds): 155 General Appearance: WD/WN Neck: supple Cardiovascular: irregularly irregular Respiratory/Chest: chest wall non-tender, lungs clear, normal breath sounds, no respiratory distress Abdomen: normal bowel sounds, non tender, soft, no organomegaly Edema: no edema noted Arm (L), no edema noted Arm (R), no edema noted Leg (L), no edema noted Leg (R) 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, alert, responsive Assessment/Plan Problem List: (1) Hypertension ICD Codes: I10 - Essential (primary) hypertension SNOMED: 99535008 (2) Hyperlipidemia ICD Codes: E78.5 - Hyperlipidemia, unspecified SNOMED: 87522100 (3) ESRD (end-stage renal disease) due to SLE ICD Codes: M32.14 - Glomerular disease in systemic lupus erythematosus; N18.6 - End stage renal disease SNOMED: 57821267, 40793949 (4) Atrial flutter with rapid ventricular response ICD Codes: I48.92 - Unspecified atrial flutter SNOMED: 8563348, 6065691 Status: stable Assessment/Plan: tele amiodarone antiplt rx iv abx monitor cxr dvt/stress ulcer prophylaxis ?Anil Kaplan MD Dec 18, 2020 11:16
[2020-12-18 12:00] VITALS: BP 126/70
--- NOTE | 2020-12-18 13:03 | Pulmonology Progress Note ---
Subjective ROS Limited/Unobtainable: Yes Allergies: Coded Allergies: No Known Allergies (Unverified , 12/16/20) All Systems: reviewed and negative except above Subjective care noted no distress in afib on monitor hematuria reported Objective Last 24 Hour Vital Signs Date Time Temp Pulse Resp B/P (MAP) Pulse Ox O2 Delivery O2 Flow Rate FiO2 12/18/20 10:06 97 127/67 12/18/20 09:56 97 12/18/20 09:00 Room Air 12/18/20 08:00 81 12/18/20 08:00 98.2 97 18 127/67 (87) 94 12/18/20 04:00 97.6 108 16 118/65 (82) 94 12/18/20 04:00 96 12/18/20 00:00 97.8 92 16 125/52 (76) 91 12/18/20 00:00 90 12/17/20 21:00 Room Air 12/17/20 20:43 120 124/69 12/17/20 20:00 98.5 120 18 124/69 (87) 98 12/17/20 20:00 90 12/17/20 16:00 79 12/17/20 16:00 97.1 91 18 115/46 (69) 93 Intake and Output 12/17/20 12/18/20 19:00 07:00 Intake Total 540 ml Output Total 2050 ml Balance -1510 ml Intake Oral 540 ml Output Urine Total 50 ml Hemodialysis UF 2000 ml # Bowel Movements 2 1 Objective WDWN NAD clear breath sounds bilaterally without rhonchi or wheeze S1S2 iRRR without MRG NABS nontender no CCE nonfocal Microbiology Date/Time Source Procedure Growth Status 12/16/20 03:00 Rectum - Final NO CARBAPENEM-RESISTANT ENTEROBACTERI... Complete 12/16/20 03:00 Rectum VRE Culture - Final NO VANCOMYCIN RESISTANT ENTEROCOCCUS ... Complete 12/16/20 03:00 Nasal Nares MRSA Culture - Final NO METHICILLIN RESISTANT STAPH AUREUS... Complete 12/16/20 01:20 Nasopharynx SARS-CoV-2 RdRp Gene Assay - Final Complete 12/16/20 01:15 Blood Blood Culture - Preliminary NO GROWTH AFTER 48 HOURS Resulted 12/16/20 01:05 Blood Blood Culture - Preliminary NO GROWTH AFTER 48 HOURS Resulted Laboratory Tests 12/18/20 03:40: Stool Occult Blood Negative Current Medications Medications (Trade) Dose Ordered Sig/Mohit Route PRN Reason Start Time Stop Time Status Last Admin Dose Admin Acetaminophen (Tylenol) 650 mg Q4H PRN ORAL Mild Pain (Pain Scale 1-3) 12/16/20 06:45 01/15/21 06:44 12/17/20 20:44 Al Hydroxide/Mg Hydroxide (Mylanta) 30 ml Q4H PRN ORAL Abdominal cramps 12/16/20 06:45 01/15/21 06:44 Amiodarone HCl (Cordarone) 200 mg EVERY 12 HOURS ORAL 12/16/20 15:00 03/16/21 14:59 12/18/20 09:56 Aspirin (Ecotrin) 81 mg DAILY ORAL 12/17/20 09:00 01/31/21 08:59 12/18/20 09:56 Atorvastatin Calcium (Lipitor) 40 mg BEDTIME ORAL 12/16/20 21:00 03/16/21 20:59 12/17/20 20:43 Ceftriaxone Sodium 1 gm/ Dextrose 55 ml @ 110 mls/hr DAILY IVPB 12/17/20 09:00 12/24/20 08:59 12/18/20 09:57 Digoxin (Lanoxin) 0.125 mg DAILY ORAL 12/17/20 09:00 03/17/21 08:59 12/18/20 09:56 Donepezil HCl (Aricept) 10 mg DAILY ORAL 12/17/20 09:00 01/16/21 08:59 12/18/20 09:56 Escitalopram Oxalate (Lexapro) 5 mg DAILY ORAL 12/16/20 15:00 01/15/21 14:59 12/18/20 09:56 Memantine (Namenda) 10 mg TWICE A DAY ORAL 12/16/20 18:00 01/15/21 17:59 12/18/20 09:56 Metoprolol Tartrate (Lopressor) 50 mg Q12HR ORAL 12/16/20 21:00 03/16/21 20:59 12/18/20 10:06 Pantoprazole (Protonix) 40 mg DAILY ORAL 12/16/20 09:00 01/15/21 08:59 12/18/20 09:55 Assessment/Plan Assessment/Plan IMPRESSION dyspnea ESRD pleural effusion dementia chronic encephalopathy hyperglycemia anemia afib cardiomegaly hematuria PLAN urology to see HD per renal resume meds monitor vitals EP to see monitor for bleeding tele care for now d/w nursing d/w consultants rate control nutrition monitor fluid status dc plan? am impression, plan, and exam edited and reviewed in detail care discussed with Maicol Noble MD Dec 18, 2020 13:03
--- NOTE | 2020-12-18 13:22 | Nephrology Progress Note ---
Assessment/Plan Plan A. Fib - per Card. ESRD - HD TTS Subjective Subjective No new c/o Objective Objective Last 24 Hour Vital Signs Date Time Temp Pulse Resp B/P (MAP) Pulse Ox O2 Delivery O2 Flow Rate FiO2 12/18/20 10:06 97 127/67 12/18/20 09:56 97 12/18/20 09:00 Room Air 12/18/20 08:00 81 12/18/20 08:00 98.2 97 18 127/67 (87) 94 12/18/20 04:00 97.6 108 16 118/65 (82) 94 12/18/20 04:00 96 12/18/20 00:00 97.8 92 16 125/52 (76) 91 12/18/20 00:00 90 12/17/20 21:00 Room Air 12/17/20 20:43 120 124/69 12/17/20 20:00 98.5 120 18 124/69 (87) 98 12/17/20 20:00 90 12/17/20 16:00 79 12/17/20 16:00 97.1 91 18 115/46 (69) 93 Intake and Output 12/17/20 12/18/20 19:03 07:03 Intake Total 540 ml Output Total 2050 ml Balance -1510 ml Intake Oral 540 ml Output Urine Total 50 ml Hemodialysis UF 2000 ml # Bowel Movements 2 1 Laboratory Tests 12/18/20 03:40: Stool Occult Blood Negative Height (Feet): 5 Height (Inches): 2.00 Weight (Pounds): 155 Objective CV Irr Lungs CTA Abd SNT. BS + E No CCE Hussein Gonzalez MD Dec 18, 2020 13:22
[2020-12-18] MEDS ORDERED: Heparin Sod 1000 units/ml 10ml IV PRN (13:30)
--- NOTE | 2020-12-18 13:36 | Cardiac Electrophysiology PN ---
Assessment/Plan Assessment/Plan 1. Atrial flutter with rapid ventricular response. On digoxin 0.125 mg p.o. daily. Digoxin level 1.3. metoprolol 50 mg b.i.d. and amiodarone 200 mg b.i.d. Off anticoagulation due to diffuse bilateral ecchymosis. Hemoglobin of 8.5. In the long run, the patient would benefit from atrial flutter ablation, which is the curative approach. 2. End-stage renal disease, on hemodialysis. 3. Hypertension. On Lopressor 50 bid 4. Hyperlipidemia, on Lipitor. 5. Diffuse ecchymoses of lower extremity, currently off anticoagulation. Subjective Subjective Alert in NAD. In atrial flutter with CVR 80-90s Objective Last 24 Hour Vital Signs Date Time Temp Pulse Resp B/P (MAP) Pulse Ox O2 Delivery O2 Flow Rate FiO2 12/18/20 10:06 97 127/67 12/18/20 09:56 97 12/18/20 09:00 Room Air 12/18/20 08:00 81 12/18/20 08:00 98.2 97 18 127/67 (87) 94 12/18/20 04:00 97.6 108 16 118/65 (82) 94 12/18/20 04:00 96 12/18/20 00:00 97.8 92 16 125/52 (76) 91 12/18/20 00:00 90 12/17/20 21:00 Room Air 12/17/20 20:43 120 124/69 12/17/20 20:00 98.5 120 18 124/69 (87) 98 12/17/20 20:00 90 12/17/20 16:00 79 12/17/20 16:00 97.1 91 18 115/46 (69) 93 Intake and Output 12/17/20 12/18/20 19:03 07:03 Intake Total 540 ml Output Total 2050 ml Balance -1510 ml Intake Oral 540 ml Output Urine Total 50 ml Hemodialysis UF 2000 ml # Bowel Movements 2 1 Laboratory Tests Test 12/18/20 03:40 Stool Occult Blood Negative (NEGATIVE) Microbiology Date/Time Source Procedure Growth Status 12/16/20 03:00 Rectum - Final NO CARBAPENEM-RESISTANT ENTEROBACTERI... Complete 12/16/20 03:00 Rectum VRE Culture - Final NO VANCOMYCIN RESISTANT ENTEROCOCCUS ... Complete 12/16/20 03:00 Nasal Nares MRSA Culture - Final NO METHICILLIN RESISTANT STAPH AUREUS... Complete 12/16/20 01:20 Nasopharynx SARS-CoV-2 RdRp Gene Assay - Final Complete 12/16/20 01:15 Blood Blood Culture - Preliminary NO GROWTH AFTER 48 HOURS Resulted 12/16/20 01:05 Blood Blood Culture - Preliminary NO GROWTH AFTER 48 HOURS Resulted Objective HEAD AND NECK: Shows mild JVD. LUNGS: Decreased breath sounds. CARDIOVASCULAR: Irregular S1 and S2 with no gallop or murmur. ABDOMEN: Soft. EXTREMITIES: Bilateral ecchymosis of lower extremity, left more than right. Devon Zuluaga MD Dec 18, 2020 13:36
[2020-12-18 16:00] VITALS: BP 132/70
--- NOTE | 2020-12-18 16:02 | NUR ---
NURSE NOTES: Scheduled hemodialysis with Edwin at [facility] for 12/19/20.
--- NOTE | 2020-12-18 16:37 | NUR ---
NURSE NOTES: Patient has pulled off leads twice today. I called Dr. Maicol Sandoval to report that patient keeps asking to go home. Will place leads back on patient.
--- NOTE | 2020-12-18 19:22 | NUR ---
NURSE HAND-OFF REPORT: Important Events on Shift: Patient is confused, wants to go home, removed data management specialist and leads twice. Replaced twice. Left message with Krystal at Dr. Maicol Sandoval's office. Contacted niece and had niece speak to patient. Patient Status: In no apparent distress. Diet: Renal Pending Orders: hemodialysis 12/19/20. Pending Results/Labs:am labs Pending MD notification:N/A Latest Vital Signs: Temperature 98.0 , Pulse 83 , B/P 132 /70 , Respiratory Rate 18 , O2 SAT 94 , Room Air, O2 Flow Rate . Vital Sign Comment: In no apparent distress. EKG Rhythm: Atrial Fibrillation Rhythm change?: N MD Notified?: - MD Response: Latest Huizar Fall Score: 75 Fall Risk: High Risk Safety Measures: Call light Within Reach, Bed Alarm Zone 1, Side Rails Side Rails x2, Bed position Low and Locked. Fall Precautions: Yellow Socks Yellow Gown Door Sign Patient Fall Education Report given to Luis Clayton RN.
--- NOTE | 2020-12-18 19:30 | NUR ---
NURSE NOTES: Pt. received from ZEKE Hernandez. Pt. AAOx2, on room air, breathing even and unlabored, no indications of respiratory distress at this time, no complaints of pain at this time. IV noted right forearm 22g saline locked. Bed low and locked, side rails x3 up, bed alarm active, and call light in reach.
[2020-12-18 20:00] VITALS: BP 136/72
[2020-12-18] MEDS ORDERED: NS 275ml ONE (20:04)
[2020-12-18] MEDS: Atorvastatin 20mg tab ORAL SCH (20:48)
--- NOTE | 2020-12-18 21:00 | Consultation ---
DATE OF CONSULTATION: 12/18/2020 CONSULTING PHYSICIAN: Get Dorado M.D. REFERRING PHYSICIAN: Maicol Sandoval M.D. REASON FOR CONSULTATION: For evaluation of hematuria. HISTORY OF PRESENT ILLNESS: This is an 80-year-old female. She was admitted to the hospital because of shortness of breath. She was noted to be in atrial fibrillation. She has a history of end-stage renal disease. She is on hemodialysis. She was noted to have bruising on her body. She also had a urinalysis that showed hematuria. Urology evaluation is requested. I did ask the nursing staff and they had not noted significant gross hematuria. There is no obvious flank pain. Most of the history was obtained from the chart. PAST MEDICAL HISTORY: Significant for above, again end-stage renal disease, history of coronary artery disease, hyperlipidemia, dementia, GERD, also questionable diabetes. PAST SURGICAL HISTORY: Unknown. MEDICATIONS: Current medication list was reviewed here in the hospital. The patient is on digoxin, Aricept, aspirin, Rocephin, Lopressor, Lipitor, Namenda, Cardura, Lexapro, Protonix. ALLERGIES: No known drug allergies. SOCIAL HISTORY: She is currently nonsmoker. REVIEW OF SYSTEMS: As above. FAMILY HISTORY: Noncontributory. PHYSICAL EXAMINATION: GENERAL: An elderly female, no acute distress. VITAL SIGNS: Temperature is 98, blood pressure 130/70, pulse is 99, respirations are 18. ABDOMEN: Soft. No CVA tenderness. LABORATORY DATA: UA from yesterday shows 4+ protein, tgj-syxyxgft-ok-count rbc's, 2-4 wbc's, 1+ glucose. White count is 5.1, hemoglobin 8.3, and platelets are 152. BUN is 67 with a creatinine of 8.1, potassium 4.9, INR is 1.2. D-dimer is 4.30. She had a blood culture, which is negative at 48 hours. DIAGNOSTIC IMAGING STUDIES: The patient had a venous duplex, which did not show obvious DVT. There was also a chest x-ray which showed cardiomegaly. I did not see any renal imaging studies on record here at [facility]. IMPRESSION: 1. Hematuria. 2. End-stage renal disease, on hemodialysis. 3. History of lower urinary tract symptoms. 4. Possible neurogenic bladder. 5. Proteinuria. 6. Pyuria. PLAN AND DISCUSSION: Again, the patient had a UA that was positive for red blood cells. At this time, there is no evidence of any active bleeding. A renal ultrasound will be ordered and she can likely have a cystoscopy on an elective basis. She does have some mild pyuria and she is currently on Rocephin. I do not see any urine culture that was sent. Again, the patient will be monitored clinically, and she is to continue with hemodialysis per Nephrology. Thank you, Dr. Sandoval, for asking me to see this patient in consultation. Get Dorado M.D. DR: ARIADNE JOB#: [id number] CC:
[2020-12-19] VITALS: BP 122/64
--- NOTE | 2020-12-19 01:22 | Cardiology Progress Note ---
Subjective DATE OF SERVICE: Dec 18, 2020 No SOB. Monitor: Atrial fibrillation has recurred; mostly rate controlled Objective Last 24 Hour Vital Signs Date Time Temp Pulse Resp B/P (MAP) Pulse Ox O2 Delivery O2 Flow Rate FiO2 12/18/20 21:00 Room Air 12/18/20 20:48 104 136/72 12/18/20 16:00 83 12/18/20 16:00 98.0 99 18 132/70 (90) 94 12/18/20 12:00 80 12/18/20 12:00 98.2 99 18 126/70 (88) 97 12/18/20 10:06 97 127/67 12/18/20 09:56 97 12/18/20 09:00 Room Air 12/18/20 08:00 81 12/18/20 08:00 98.2 97 18 127/67 (87) 94 12/18/20 04:00 97.6 108 16 118/65 (82) 94 12/18/20 04:00 96 ROS: unchanged from my initial evaluation HEENT: normal ENT inspection RHYTHM: Afib LUNGS: lungs clear bilaterally CARDIAC: normal S1 and S2, irregularly irregular ABDOMEN: non tender, soft EXTREMITIES: normal range of motion, non-tender, trace edema, other - ecchymoses Laboratory Tests Test 12/18/20 03:40 Stool Occult Blood Negative (NEGATIVE) Microbiology Date/Time Source Procedure Growth Status 12/16/20 03:00 Rectum - Final NO CARBAPENEM-RESISTANT ENTEROBACTERI... Complete 12/16/20 03:00 Rectum VRE Culture - Final NO VANCOMYCIN RESISTANT ENTEROCOCCUS ... Complete 12/16/20 03:00 Nasal Nares MRSA Culture - Final NO METHICILLIN RESISTANT STAPH AUREUS... Complete Assessment/Plan Assessment/Plan PAFibrillation Ac/chr diastolic CHF with pleural effusion ESRD on hemodialysis Dementia Cautious anticoag Anti-arrhythmics with titration HD/UF Titrate anti-failure and rate-control regimen based on clinical parameters. Dilip Seaman MD Dec 19, 2020 01:21
[2020-12-19 04:00] VITALS: BP 130/72
--- NOTE | 2020-12-19 06:21 | NUR ---
NURSE NOTES: Pt. with multiple small bowel movements overnight. Last BM noted with blood, collected and sent down for OB stool as ordered by Dr. Reynoso.
--- NOTE | 2020-12-19 07:30 | NUR ---
NURSE NOTES: Recieved patient AAOx2, on room air, wolof speaking. Able to verbalize needs. breathing even and unlabored, no indications of respiratory distress at this time, no complaints of pain at this time. Able to feed self with minimal help. PIV noted right forearm 22g saline locked. Bed low and locked, side rails x3 up, bed alarm active, and call light in reach. will cont to monitor
--- NOTE | 2020-12-19 07:39 | NUR ---
NURSE HAND-OFF REPORT: Important Events on Shift:[pt. with bloody stool, OB stool sent down and Dr. Reynoso aware. ] Patient Status: awake Diet: renal Pending Orders: na Pending Results/Labs:na Pending MD notification:na Latest Vital Signs: Temperature 98.3 , Pulse 90 , B/P 130 /72 , Respiratory Rate 20 , O2 SAT 93 , Room Air, O2 Flow Rate . Vital Sign Comment: stable EKG Rhythm: Atrial Fibrillation Rhythm change?: N MD Notified?: - MD Response: Latest Huizar Fall Score: 75 Fall Risk: High Risk Safety Measures: Call light Within Reach, Bed Alarm Zone 1, Side Rails Side Rails x2, Bed position Low and Locked. Fall Precautions: Yellow Socks Yellow Gown Door Sign Patient Fall Education Report given to MJ Healy.
[2020-12-19 07:58] VITALS: BP 116/72
[2020-12-19] MEDS: Memantine 10mg tab ORAL SCH ×2 (08:09→17:08)
[2020-12-19] MEDS: Donepezil 10mg tab ORAL SCH (08:11)
[2020-12-19] MEDS: Digoxin 0.125mg tab ORAL SCH (08:11)
[2020-12-19] MEDS: Metoprolol Tartrate 50mg tab ORAL SCH ×2 (08:11→21:08)
[2020-12-19] MEDS: Aspirin EC 81mg tab ORAL SCH (08:11)
[2020-12-19] MEDS: Amiodarone 200mg tab ORAL SCH ×2 (08:11→21:07)
[2020-12-19 08:12] LABS: BASOPHILS % (AUTO) 0.8 % (0.0-2.0); HEMATOCRIT 30.9 % (37.0-47.0); HEMOGLOBIN 9.2 G/DL (12.0-16.0); LYMPHOCYTES % (AUTO) 10.5 % (20.0-45.0); MEAN CORPUSCULAR VOLUME 91 FL (80-99); MONOCYTES % (AUTO) 9.5 % (1.0-10.0); NEUTROPHILS % (AUTO) 75.2 % (45.0-75.0); PLATELET COUNT 184 K/UL (150-450); RED BLOOD COUNT 3.41 M/UL (4.20-5.40); RED CELL DISTRIBUTION WIDTH 19.1 % (11.6-14.8); WHITE BLOOD COUNT 5.7 K/UL (4.8-10.8)
--- NOTE | 2020-12-19 08:27 | Urology Progress Note ---
Assessment/Plan Status: stable Assessment/Plan: 1. Hematuria. 2. End-stage renal disease, on hemodialysis. 3. History of lower urinary tract symptoms. 4. Possible neurogenic bladder. 5. Proteinuria. 6. Pyuria. monitor clinically HD per clinical informatics specialist cont with abx as ordered on ASA monitor h/h cysto electively f/u on blood cx Subjective Allergies: Coded Allergies: No Known Allergies (Unverified , 12/16/20) Subjective all noted some blood noted in bed la Objective Last 24 Hour Vital Signs Date Time Temp Pulse Resp B/P (MAP) Pulse Ox O2 Delivery O2 Flow Rate FiO2 12/19/20 08:11 69 12/19/20 08:11 69 116/72 12/19/20 07:58 97.2 69 18 116/72 (87) 91 12/19/20 04:00 90 12/19/20 04:00 98.3 90 20 130/72 (91) 93 12/19/20 00:00 96.4 84 20 122/64 (83) 93 12/19/20 00:00 84 12/18/20 21:00 Room Air 12/18/20 20:48 104 136/72 12/18/20 20:00 88 12/18/20 20:00 99.6 88 20 136/72 (93) 94 12/18/20 16:00 83 12/18/20 16:00 98.0 99 18 132/70 (90) 94 12/18/20 12:00 80 12/18/20 12:00 98.2 99 18 126/70 (88) 97 12/18/20 10:06 97 127/67 12/18/20 09:56 97 12/18/20 09:00 Room Air Intake and Output 12/18/20 12/19/20 18:59 06:59 Intake Total 775 ml 300 ml Output Total 1000 ml Balance -225 ml 300 ml Intake Oral 720 ml 300 ml IV Total 55 ml Hemodialysis UF 1000 ml # Voids 1 2 # Bowel Movements 4 1 Microbiology Date/Time Source Procedure Growth Status 12/16/20 03:00 Rectum - Final NO CARBAPENEM-RESISTANT ENTEROBACTERI... Complete 12/16/20 03:00 Nasal Nares MRSA Culture - Final NO METHICILLIN RESISTANT STAPH AUREUS... Complete 12/16/20 01:15 Blood Blood Culture - Preliminary NO GROWTH AFTER 72 HOURS Resulted Current Medications Medications (Trade) Dose Ordered Sig/Mohit Route PRN Reason Start Time Stop Time Status Last Admin Dose Admin Acetaminophen (Tylenol) 650 mg Q4H PRN ORAL Mild Pain (Pain Scale 1-3) 12/16/20 06:45 01/15/21 06:44 12/18/20 20:49 Al Hydroxide/Mg Hydroxide (Mylanta) 30 ml Q4H PRN ORAL Abdominal cramps 12/16/20 06:45 01/15/21 06:44 Amiodarone HCl (Cordarone) 200 mg EVERY 12 HOURS ORAL 12/16/20 15:00 03/16/21 14:59 12/18/20 20:49 Aspirin (Ecotrin) 81 mg DAILY ORAL 12/17/20 09:00 01/31/21 08:59 12/19/20 08:11 Atorvastatin Calcium (Lipitor) 40 mg BEDTIME ORAL 12/16/20 21:00 03/16/21 20:59 12/18/20 20:48 Ceftriaxone Sodium 1 gm/ Dextrose 55 ml @ 110 mls/hr DAILY IVPB 12/17/20 09:00 12/24/20 08:59 12/18/20 09:57 Digoxin (Lanoxin) 0.125 mg DAILY ORAL 12/17/20 09:00 03/17/21 08:59 12/19/20 08:11 Donepezil HCl (Aricept) 10 mg DAILY ORAL 12/17/20 09:00 01/16/21 08:59 12/19/20 08:11 Escitalopram Oxalate (Lexapro) 5 mg DAILY ORAL 12/16/20 15:00 01/15/21 14:59 12/19/20 08:10 Heparin Sodium (Porcine) (Heparin Sod 1000 units/ml 10ml) 2,000 unit ONCE PRN IV FOR HD USE ONLY 12/18/20 13:30 12/19/20 23:59 Memantine (Namenda) 10 mg TWICE A DAY ORAL 12/16/20 18:00 01/15/21 17:59 12/19/20 08:09 Metoprolol Tartrate (Lopressor) 50 mg Q12HR ORAL 12/16/20 21:00 03/16/21 20:59 12/18/20 20:48 Pantoprazole (Protonix) 40 mg DAILY ORAL 12/16/20 09:00 01/15/21 08:59 12/19/20 08:10 Sodium Chloride 1,000 ml @ 500 mls/hr Q2H PRN IVLG sbp<90 during hd 12/18/20 13:30 12/19/20 23:59 Laboratory Tests 12/19/20 06:15: Stool Occult Blood [Pending] 12/19/20 07:10: White Blood Count 5.7, Red Blood Count 3.41L, Hemoglobin 9.2L, Hematocrit 30.9L, Mean Corpuscular Volume 91, Mean Corpuscular Hemoglobin 27.0, Mean Corpuscular Hemoglobin Concent 29.8L, Red Cell Distribution Width 19.1H, Platelet Count 184, Mean Platelet Volume 7.5, Neutrophils (%) (Auto) 75.2H, Lymphocytes (%) (Auto) 10.5L, Monocytes (%) (Auto) 9.5, Eosinophils (%) (Auto) 4.0H, Basophils (%) (Auto) 0.8, Sodium Level [Pending], Potassium Level [Pending], Chloride Level [Pending], Carbon Dioxide Level [Pending], Blood Urea Nitrogen [Pending], Creatinine [Pending], Estimat Glomerular Filtration Rate [Pending], Glucose Level [Pending], Calcium Level [Pending] Height (Feet): 5 Height (Inches): 2.00 Weight (Pounds): 155 Objective exam stable Get Dorado MD Dec 19, 2020 08:27
--- NOTE | 2020-12-19 08:30 | NUR ---
NURSE NOTES: young HD nurse from [facility] confirmed and will dialyze patient this pm. BP meds held. will cont to monitor.
--- NOTE | 2020-12-19 08:46 | General Progress Note ---
Subjective ROS Limited/Unobtainable: No Constitutional: Reports: malaise, weakness HEENT: Reports: no symptoms Cardiovascular: Reports: no symptoms Respiratory: Reports: cough Gastrointestinal/Abdominal: Reports: blood in stool Genitourinary: Reports: no symptoms Neurologic/Psychiatric: Reports: no symptoms Endocrine: Reports: no symptoms Hematologic/Lymphatic: Reports: anemia Allergies: Coded Allergies: No Known Allergies (Unverified , 12/16/20) All Systems: reviewed and negative except above Subjective no complaints. +bloody bowel movement this am. no melena. off anticoag due to bruising. h/h improved. currently afib but rate controlled. denies chest pain or sob. no abd pain Objective Last 24 Hour Vital Signs Date Time Temp Pulse Resp B/P (MAP) Pulse Ox O2 Delivery O2 Flow Rate FiO2 12/19/20 08:11 69 12/19/20 08:11 69 116/72 12/19/20 07:58 97.2 69 18 116/72 (87) 91 12/19/20 04:00 90 12/19/20 04:00 98.3 90 20 130/72 (91) 93 12/19/20 00:00 96.4 84 20 122/64 (83) 93 12/19/20 00:00 84 12/18/20 21:00 Room Air 12/18/20 20:48 104 136/72 12/18/20 20:00 88 12/18/20 20:00 99.6 88 20 136/72 (93) 94 12/18/20 16:00 83 12/18/20 16:00 98.0 99 18 132/70 (90) 94 12/18/20 12:00 80 12/18/20 12:00 98.2 99 18 126/70 (88) 97 12/18/20 10:06 97 127/67 12/18/20 09:56 97 12/18/20 09:00 Room Air Intake and Output 12/18/20 12/19/20 19:00 07:00 Intake Total 775 ml 300 ml Output Total 1000 ml Balance -225 ml 300 ml Intake Oral 720 ml 300 ml IV Total 55 ml Hemodialysis UF 1000 ml # Voids 1 2 # Bowel Movements 4 1 Laboratory Tests 12/19/20 06:15: Stool Occult Blood [Pending] 12/19/20 07:10: White Blood Count 5.7, Red Blood Count 3.41L, Hemoglobin 9.2L, Hematocrit 30.9L, Mean Corpuscular Volume 91, Mean Corpuscular Hemoglobin 27.0, Mean Corpuscular Hemoglobin Concent 29.8L, Red Cell Distribution Width 19.1H, Platelet Count 184, Mean Platelet Volume 7.5, Neutrophils (%) (Auto) 75.2H, Lymphocytes (%) (Auto) 10.5L, Monocytes (%) (Auto) 9.5, Eosinophils (%) (Auto) 4.0H, Basophils (%) (Auto) 0.8, Sodium Level [Pending], Potassium Level [Pending], Chloride Level [Pending], Carbon Dioxide Level [Pending], Blood Urea Nitrogen [Pending], Creatinine [Pending], Estimat Glomerular Filtration Rate [Pending], Glucose Level [Pending], Calcium Level [Pending] Height (Feet): 5 Height (Inches): 2.00 Weight (Pounds): 155 Objective General Appearance: WD/WN, alert Neck: supple Cardiovascular: regular rhythm Respiratory/Chest: lungs clear Abdomen: normal bowel sounds, non tender, soft, no organomegaly Edema: no edema noted Arm (L), no edema noted Arm (R) Neurologic: 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 assembler 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 II-XII 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, no motor/sensory deficits, alert, responsive Skin: normal pigmentation Assessment/Plan Problem List: (1) Hypertension ICD Codes: I10 - Essential (primary) hypertension SNOMED: 41884745 (2) Hyperlipidemia ICD Codes: E78.5 - Hyperlipidemia, unspecified SNOMED: 35438773 (3) 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
[2020-12-19 08:47] LABS: CALCIUM 8.8 MG/DL (8.5-10.1); POTASSIUM 3.8 MMOL/L (3.5-5.1)
[2020-12-19] MEDS: cefTRIAXone 1gm/D5W 55ml IVPB SCH ×2 (09:16)
--- NOTE | 2020-12-19 09:25 | Pulmonology Progress Note ---
Subjective ROS Limited/Unobtainable: No Allergies: Coded Allergies: No Known Allergies (Unverified , 12/16/20) All Systems: reviewed and negative except above Subjective care noted no distress in afib on monitor but rate controlled urology noted Objective Last 24 Hour Vital Signs Date Time Temp Pulse Resp B/P (MAP) Pulse Ox O2 Delivery O2 Flow Rate FiO2 12/19/20 08:11 69 12/19/20 08:11 69 116/72 12/19/20 07:58 97.2 69 18 116/72 (87) 91 12/19/20 04:00 90 12/19/20 04:00 98.3 90 20 130/72 (91) 93 12/19/20 00:00 96.4 84 20 122/64 (83) 93 12/19/20 00:00 84 12/18/20 21:00 Room Air 12/18/20 20:48 104 136/72 12/18/20 20:00 88 12/18/20 20:00 99.6 88 20 136/72 (93) 94 12/18/20 16:00 83 12/18/20 16:00 98.0 99 18 132/70 (90) 94 12/18/20 12:00 80 12/18/20 12:00 98.2 99 18 126/70 (88) 97 12/18/20 10:06 97 127/67 12/18/20 09:56 97 Intake and Output 12/18/20 12/19/20 19:00 07:00 Intake Total 775 ml 300 ml Output Total 1000 ml Balance -225 ml 300 ml Intake Oral 720 ml 300 ml IV Total 55 ml Hemodialysis UF 1000 ml # Voids 1 2 # Bowel Movements 4 1 Objective WDWN NAD clear breath sounds bilaterally without rhonchi or wheeze S1S2 iRRR without MRG NABS nontender no CCE nonfocal Laboratory Tests 12/19/20 06:15: Stool Occult Blood [Pending] 12/19/20 07:10: White Blood Count 5.7, Red Blood Count 3.41L, Hemoglobin 9.2L, Hematocrit 30.9L, Mean Corpuscular Volume 91, Mean Corpuscular Hemoglobin 27.0, Mean Corpuscular Hemoglobin Concent 29.8L, Red Cell Distribution Width 19.1H, Platelet Count 184, Mean Platelet Volume 7.5, Neutrophils (%) (Auto) 75.2H, Lymphocytes (%) (Auto) 10.5L, Monocytes (%) (Auto) 9.5, Eosinophils (%) (Auto) 4.0H, Basophils (%) (Auto) 0.8, Sodium Level 136, Potassium Level 3.8, Chloride Level 100, Carbon Dioxide Level 24, Anion Gap 12, Blood Urea Nitrogen 47H, Creatinine 7.0H, Estimat Glomerular Filtration Rate 5.6, Glucose Level 84, Calcium Level 8.8 Current Medications Medications (Trade) Dose Ordered Sig/Mohit Route PRN Reason Start Time Stop Time Status Last Admin Dose Admin Acetaminophen (Tylenol) 650 mg Q4H PRN ORAL Mild Pain (Pain Scale 1-3) 12/16/20 06:45 01/15/21 06:44 12/18/20 20:49 Al Hydroxide/Mg Hydroxide (Mylanta) 30 ml Q4H PRN ORAL Abdominal cramps 12/16/20 06:45 01/15/21 06:44 Amiodarone HCl (Cordarone) 200 mg EVERY 12 HOURS ORAL 12/16/20 15:00 03/16/21 14:59 12/18/20 20:49 Aspirin (Ecotrin) 81 mg DAILY ORAL 12/17/20 09:00 01/31/21 08:59 12/19/20 08:11 Atorvastatin Calcium (Lipitor) 40 mg BEDTIME ORAL 12/16/20 21:00 03/16/21 20:59 12/18/20 20:48 Ceftriaxone Sodium 1 gm/ Dextrose 55 ml @ 110 mls/hr DAILY IVPB 12/17/20 09:00 12/24/20 08:59 12/19/20 09:16 Digoxin (Lanoxin) 0.125 mg DAILY ORAL 12/17/20 09:00 03/17/21 08:59 12/19/20 08:11 Donepezil HCl (Aricept) 10 mg DAILY ORAL 12/17/20 09:00 01/16/21 08:59 12/19/20 08:11 Escitalopram Oxalate (Lexapro) 5 mg DAILY ORAL 12/16/20 15:00 01/15/21 14:59 12/19/20 08:10 Heparin Sodium (Porcine) (Heparin Sod 1000 units/ml 10ml) 2,000 unit ONCE PRN IV FOR HD USE ONLY 12/18/20 13:30 12/19/20 23:59 Memantine (Namenda) 10 mg TWICE A DAY ORAL 12/16/20 18:00 01/15/21 17:59 12/19/20 08:09 Metoprolol Tartrate (Lopressor) 50 mg Q12HR ORAL 12/16/20 21:00 03/16/21 20:59 12/18/20 20:48 Pantoprazole (Protonix) 40 mg DAILY ORAL 12/16/20 09:00 01/15/21 08:59 12/19/20 08:10 Sodium Chloride 1,000 ml @ 500 mls/hr Q2H PRN IVLG sbp<90 during hd 12/18/20 13:30 12/19/20 23:59 Assessment/Plan Assessment/Plan IMPRESSION dyspnea ESRD pleural effusion dementia chronic encephalopathy hyperglycemia anemia afib cardiomegaly hematuria PLAN urology noted HD per renal appears improved monitor vitals monitor for bleeding tele care for now d/w nursing d/w consultants rate control nutrition monitor fluid status dc plan will dw case management impression, plan, and exam edited and reviewed in detail care discussed with Maicol Noble MD Dec 19, 2020 09:25
--- NOTE | 2020-12-19 09:33 | Diagnostic Imaging Report ---
Indication: Abnormal renal function tests Technique: Grayscale and duplex images of the kidneys, retroperitoneum, and bladder were obtained. Comparison: none Findings: Technologist reports exam technically difficult due to patient body habitus. Right kidney measures 5.5 cm in length. Left kidney measures 7.5 cm in length. Both kidneys demonstrate markedly increased echogenicity. No hydronephrosis. A cyst is seen in the left renal interpolar region.. Normal inferior vena cava. Bladder contained urine, calculated volume 361 mL. Ureteral jets are seen within the bladder. Incidentally noted is ascites Impression: Atrophic echogenic kidneys, consistent with medical renal disease Full bladder, ureteral jets suggest a small amount of residual renal function Negative for hydronephrosis Ascites Incidental finding left renal cyst.
--- NOTE | 2020-12-19 10:00 | NUR ---
NURSE NOTES: PIV on right fa got infiltrated. able to resite to right hand 22g. patent and intact. will cont to monitor.
--- NOTE | 2020-12-19 10:24 | Cardiac Electrophysiology PN ---
Assessment/Plan Assessment/Plan 1. Atrial flutter with rapid ventricular response. On digoxin 0.125 mg po daily, metoprolol 50 mg bid and amiodarone 200 mg b.i.d. Digoxin level 1.3. Off anticoagulation due to diffuse bilateral ecchymosis. Hemoglobin of 8.5. In the long run, the patient would benefit from atrial flutter ablation, which is the curative approach. 2. End-stage renal disease, on hemodialysis. 3. Hypertension. On Lopressor 50 bid 4. Hyperlipidemia, on Lipitor. 5. Diffuse ecchymoses of lower extremity, currently off anticoagulation. Subjective Subjective Alert in NAD. In atrial flutter with CVR 80-90s. HD pending today Objective Last 24 Hour Vital Signs Date Time Temp Pulse Resp B/P (MAP) Pulse Ox O2 Delivery O2 Flow Rate FiO2 12/19/20 09:00 Room Air 12/19/20 08:11 69 12/19/20 08:11 69 116/72 12/19/20 08:00 92 12/19/20 07:58 97.2 69 18 116/72 (87) 91 12/19/20 04:00 90 12/19/20 04:00 98.3 90 20 130/72 (91) 93 12/19/20 00:00 96.4 84 20 122/64 (83) 93 12/19/20 00:00 84 12/18/20 21:00 Room Air 12/18/20 20:48 104 136/72 12/18/20 20:00 88 12/18/20 20:00 99.6 88 20 136/72 (93) 94 12/18/20 16:00 83 12/18/20 16:00 98.0 99 18 132/70 (90) 94 12/18/20 12:00 80 12/18/20 12:00 98.2 99 18 126/70 (88) 97 Intake and Output 12/18/20 12/19/20 19:00 07:00 Intake Total 775 ml 300 ml Output Total 1000 ml Balance -225 ml 300 ml Intake Oral 720 ml 300 ml IV Total 55 ml Hemodialysis UF 1000 ml # Voids 1 2 # Bowel Movements 4 1 Laboratory Tests Test 12/19/20 06:15 12/19/20 07:10 Stool Occult Blood Pending White Blood Count 5.7 K/UL (4.8-10.8) Red Blood Count 3.41 M/UL (4.20-5.40) L Hemoglobin 9.2 G/DL (12.0-16.0) L Hematocrit 30.9 % (37.0-47.0) L Mean Corpuscular Volume 91 FL (80-99) Mean Corpuscular Hemoglobin 27.0 PG (27.0-31.0) Mean Corpuscular Hemoglobin Concent 29.8 G/DL (32.0-36.0) L Red Cell Distribution Width 19.1 % (11.6-14.8) H Platelet Count 184 K/UL (150-450) Mean Platelet Volume 7.5 FL (6.5-10.1) Neutrophils (%) (Auto) 75.2 % (45.0-75.0) H Lymphocytes (%) (Auto) 10.5 % (20.0-45.0) L Monocytes (%) (Auto) 9.5 % (1.0-10.0) Eosinophils (%) (Auto) 4.0 % (0.0-3.0) H Basophils (%) (Auto) 0.8 % (0.0-2.0) Sodium Level 136 MMOL/L (136-145) Potassium Level 3.8 MMOL/L (3.5-5.1) Chloride Level 100 MMOL/L (98-107) Carbon Dioxide Level 24 MMOL/L (21-32) Anion Gap 12 mmol/L (5-15) Blood Urea Nitrogen 47 mg/dL (7-18) H Creatinine 7.0 MG/DL (0.55-1.30) H Estimat Glomerular Filtration Rate 5.6 mL/min (>60) Glucose Level 84 MG/DL (74-106) Calcium Level 8.8 MG/DL (8.5-10.1) Objective HEAD AND NECK: Shows mild JVD. LUNGS: Decreased breath sounds. CARDIOVASCULAR: Irregular S1 and S2 with no gallop or murmur. ABDOMEN: Soft. EXTREMITIES: Bilateral ecchymosis of lower extremity, left more than right. Devon Zuluaga MD Dec 19, 2020 10:24
[2020-12-19 12:00] VITALS: BP 134/80
--- NOTE | 2020-12-19 13:33 | Nephrology Progress Note ---
Assessment/Plan Plan A. Fib - per Card. ESRD - HD TTS Subjective Subjective No new c/o Objective Objective Last 24 Hour Vital Signs Date Time Temp Pulse Resp B/P (MAP) Pulse Ox O2 Delivery O2 Flow Rate FiO2 12/19/20 12:00 82 12/19/20 12:00 96.7 51 19 134/80 (98) 93 12/19/20 09:00 Room Air 12/19/20 08:11 69 12/19/20 08:11 69 116/72 12/19/20 08:00 92 12/19/20 07:58 97.2 69 18 116/72 (87) 91 12/19/20 04:00 90 12/19/20 04:00 98.3 90 20 130/72 (91) 93 12/19/20 00:00 96.4 84 20 122/64 (83) 93 12/19/20 00:00 84 12/18/20 21:00 Room Air 12/18/20 20:48 104 136/72 12/18/20 20:00 88 12/18/20 20:00 99.6 88 20 136/72 (93) 94 12/18/20 16:00 83 12/18/20 16:00 98.0 99 18 132/70 (90) 94 Intake and Output 12/18/20 12/19/20 19:00 07:00 Intake Total 775 ml 300 ml Output Total 1000 ml Balance -225 ml 300 ml Intake Oral 720 ml 300 ml IV Total 55 ml Hemodialysis UF 1000 ml # Voids 1 2 # Bowel Movements 4 1 Laboratory Tests 12/19/20 06:15: Stool Occult Blood Positive 12/19/20 07:10: White Blood Count 5.7, Red Blood Count 3.41L, Hemoglobin 9.2L, Hematocrit 30.9L, Mean Corpuscular Volume 91, Mean Corpuscular Hemoglobin 27.0, Mean Corpuscular Hemoglobin Concent 29.8L, Red Cell Distribution Width 19.1H, Platelet Count 184, Mean Platelet Volume 7.5, Neutrophils (%) (Auto) 75.2H, Lymphocytes (%) (Auto) 10.5L, Monocytes (%) (Auto) 9.5, Eosinophils (%) (Auto) 4.0H, Basophils (%) (Auto) 0.8, Sodium Level 136, Potassium Level 3.8, Chloride Level 100, Carbon Dioxide Level 24, Anion Gap 12, Blood Urea Nitrogen 47H, Creatinine 7.0H, Estimat Glomerular Filtration Rate 5.6, Glucose Level 84, Calcium Level 8.8 Height (Feet): 5 Height (Inches): 2.00 Weight (Pounds): 155 Objective CV Irr Lungs CTA Abd SNT. BS + E No CCE Hussein Gonzalez MD Dec 19, 2020 13:33
[2020-12-19 16:00] VITALS: BP 151/55
--- NOTE | 2020-12-19 19:16 | NUR ---
NURSE HAND-OFF REPORT: Important Events on Shift:[seen by pt, sat on a chair] Patient Status: [stable ] Diet: [renal] Pending Orders: [HD; labs] Pending Results/Labs:[today and am] Pending MD notification:[] Latest Vital Signs: Temperature 97.8 , Pulse 68 , B/P 151 /55 , Respiratory Rate 18 , O2 SAT 91 , Room Air, O2 Flow Rate . Vital Sign Comment: [] EKG Rhythm: Atrial Flutter Rhythm change?: N MD Notified?: - MD Response: Latest Huizar Fall Score: 75 Fall Risk: High Risk Safety Measures: Call light Within Reach, Bed Alarm Zone 2, Side Rails Side Rails x3, Bed position Low and Locked. Fall Precautions: Yellow Socks Yellow Gown Door Sign Patient Fall Education Report given to [alyssa].
[2020-12-19 20:00] VITALS: BP 133/62
[2020-12-19] MEDS: Atorvastatin 20mg tab ORAL SCH (21:08)
--- NOTE | 2020-12-19 22:33 | NUR ---
NURSE NOTES: Received patient report from MJ Healy. Patient is AO x2 awake and able to make needs known. Patient shows no signs of distress or pain at the time. Patient is on room air and shows no signs of respiratory distress. IV is intact and patent. There are no signs of erythema, infiltration, or bleeding. Bed is in the lowest position, call light is within reach, side rails up x3. Will continue to monitor.
--- NOTE | 2020-12-19 23:09 | NUR ---
NURSE NOTES: Patient was scheduled to get dialysis for today. Dialysis nurse Frankie was called and she said she did not have time to get to patient today. I called Dr. Mcgovern to let him know. No new orders were given.
--- NOTE | 2020-12-19 23:48 | Cardiology Progress Note ---
Subjective DATE OF SERVICE: Dec 19, 2020 No SOB. Monitor: Atrial flutter - mostly rate controlled Off anticoagulation due to bloody stool and bruising. Objective Last 24 Hour Vital Signs Date Time Temp Pulse Resp B/P (MAP) Pulse Ox O2 Delivery O2 Flow Rate FiO2 12/19/20 21:08 91 133/62 12/19/20 16:00 97.8 91 18 151/55 (87) 91 12/19/20 16:00 68 12/19/20 12:00 82 12/19/20 12:00 96.7 51 19 134/80 (98) 93 12/19/20 09:00 Room Air 12/19/20 08:11 69 12/19/20 08:11 69 116/72 12/19/20 08:00 92 12/19/20 07:58 97.2 69 18 116/72 (87) 91 12/19/20 04:00 90 12/19/20 04:00 98.3 90 20 130/72 (91) 93 12/19/20 00:00 96.4 84 20 122/64 (83) 93 12/19/20 00:00 84 ROS: unchanged from my initial evaluation HEENT: normal ENT inspection RHYTHM: Afib LUNGS: lungs clear bilaterally CARDIAC: normal S1 and S2, irregularly irregular ABDOMEN: non tender, soft EXTREMITIES: normal range of motion, non-tender, trace edema, other - ecchymoses Laboratory Tests Test 12/19/20 06:15 12/19/20 07:10 Stool Occult Blood Positive (NEGATIVE) White Blood Count 5.7 K/UL (4.8-10.8) Red Blood Count 3.41 M/UL (4.20-5.40) L Hemoglobin 9.2 G/DL (12.0-16.0) L Hematocrit 30.9 % (37.0-47.0) L Mean Corpuscular Volume 91 FL (80-99) Mean Corpuscular Hemoglobin 27.0 PG (27.0-31.0) Mean Corpuscular Hemoglobin Concent 29.8 G/DL (32.0-36.0) L Red Cell Distribution Width 19.1 % (11.6-14.8) H Platelet Count 184 K/UL (150-450) Mean Platelet Volume 7.5 FL (6.5-10.1) Neutrophils (%) (Auto) 75.2 % (45.0-75.0) H Lymphocytes (%) (Auto) 10.5 % (20.0-45.0) L Monocytes (%) (Auto) 9.5 % (1.0-10.0) Eosinophils (%) (Auto) 4.0 % (0.0-3.0) H Basophils (%) (Auto) 0.8 % (0.0-2.0) Sodium Level 136 MMOL/L (136-145) Potassium Level 3.8 MMOL/L (3.5-5.1) Chloride Level 100 MMOL/L (98-107) Carbon Dioxide Level 24 MMOL/L (21-32) Anion Gap 12 mmol/L (5-15) Blood Urea Nitrogen 47 mg/dL (7-18) H Creatinine 7.0 MG/DL (0.55-1.30) H Estimat Glomerular Filtration Rate 5.6 mL/min (>60) Glucose Level 84 MG/DL (74-106) Calcium Level 8.8 MG/DL (8.5-10.1) Assessment/Plan Assessment/Plan PAFibrillation Ac/chr diastolic CHF with pleural effusion ESRD on hemodialysis Dementia GI bleeding Off anticoagulation; reassess aspirin Anti-arrhythmics with titration HD/UF Titrate anti-failure and rate-control regimen based on clinical parameters. Dilip Seaman MD Dec 19, 2020 23:48
[2020-12-20] VITALS: BP 148/69
--- NOTE | 2020-12-20 00:45 | Consultation ---
DATE OF CONSULTATION: 12/17/2020 CARDIOLOGY CONSULTATION CONSULTING PHYSICIAN: Dilip Seaman MD REQUESTING PHYSICIAN: Maicol Sandoval MD REASON FOR CONSULTATION: Cardiac arrhythmias and congestive heart failure in the setting of end-stage renal disease. HISTORY OF PRESENT ILLNESS: This is an 80-year-old female. She has a history of hypertension and end-stage renal disease on hemodialysis 3 times a week. She also has a known history of paroxysmal atrial flutter. She is on amiodarone therapy. She presented to the emergency room yesterday with bruising and a rapid heart rate over 120 with rapid atrial flutter. The patient was seen by Dr. Zuluaga and started on antiarrhythmics. I have been asked to address further cardiovascular care. PAST MEDICAL HISTORY: As outlined above. Includes hypertension, end-stage renal disease, anemia of chronic kidney disease, hyperlipidemia, and gastroesophageal reflux disease. FAMILY HISTORY: Noncontributory. SOCIAL HISTORY: Negative for smoking or alcohol use. She lives at home with assistance from family members. MEDICATIONS: Medications prior to admission, reviewed and reconciled. ALLERGIES: None known. REVIEW OF SYSTEMS: Otherwise unremarkable. PHYSICAL EXAMINATION: VITAL SIGNS: Blood pressure 118/57, heart rate 114, respiratory rate 18, afebrile, oxygen saturation on room air is 93%. HEAD AND NECK: Jugular venous pressure is slightly elevated. LUNGS: With few rales. CARDIAC: Irregularly irregular. Normal S1, S2. A 1/6 systolic apical murmur. ABDOMEN: Soft. EXTREMITIES: No edema. A few ecchymoses on extremities. LABORATORY DATA: White count 5.1, hemoglobin 8.3. Sodium 134, potassium 4.9, bicarb 22, BUN 67, creatinine 8.1. Troponin 0.025 and TSH is 2.38. IMPRESSION: Coagulopathy with ecchymoses, anemia due to chronic kidney disease and possible blood loss, atrial flutter paroxysmal and now with rapid ventricular response, end-stage renal disease on hemodialysis, hypertensive heart disease with low-range blood pressure, and hyperlipidemia on statin therapy. PLAN: Hold anticoagulation for now. Maximize antiarrhythmics for rate control and possible cardioversion. Hemodialysis with ultrafiltration for volume management. Vitamin supplementation and Epogen therapy. We will follow and readdress long-term anticoagulation [id number] ratio for cardioembolic prophylaxis. Dilip Seaman M.D. DR: Alma JOB#: [id number] CC:
[2020-12-20 04:00] VITALS: BP 146/68
--- NOTE | 2020-12-20 07:32 | NUR ---
NURSE HAND-OFF REPORT: Important Events on Shift:[Dialysis was not done because nurse did not have time. Dr. Mcgovern aware] Patient Status: [full code] Diet: [renal] Pending Orders: [] Pending Results/Labs:[] Pending MD notification:[] Latest Vital Signs: Temperature 99.0 , Pulse 82 , B/P 146 /68 , Respiratory Rate 18 , O2 SAT 92 , Room Air, O2 Flow Rate . Vital Sign Comment: [] EKG Rhythm: Atrial Flutter Rhythm change?: N MD Notified?: - MD Response: Latest Huizar Fall Score: 75 Fall Risk: High Risk Safety Measures: Call light Within Reach, Bed Alarm Zone 2, Side Rails Side Rails x3, Bed position Low and Locked. Fall Precautions: Yellow Socks Yellow Gown Door Sign Patient Fall Education Report given to [ZEKE Mercer].
[2020-12-20 07:33] LABS: BASOPHILS % (AUTO) 0.8 % (0.0-2.0); HEMATOCRIT 34.5 % (37.0-47.0); HEMOGLOBIN 10.3 G/DL (12.0-16.0); MEAN CORPUSCULAR VOLUME 92 FL (80-99); MONOCYTES % (AUTO) 7.3 % (1.0-10.0); NEUTROPHILS % (AUTO) 77.9 % (45.0-75.0); PLATELET COUNT 192 K/UL (150-450); RED BLOOD COUNT 3.76 M/UL (4.20-5.40); WHITE BLOOD COUNT 6.6 K/UL (4.8-10.8)
--- NOTE | 2020-12-20 07:36 | NUR ---
NURSE NOTES: Report received from ZEKE Jane. Pt received awake, alert and oriented x 2, no SOB, bed in lowest position with break engaged and alarm on, denies any pain or discomfort at this time, IV line and AV shunt in place, compliance monitor in place, will continue to monitor for change and proceed with plan of care, call light within reach.
[2020-12-20 08:00] VITALS: BP 150/78
--- NOTE | 2020-12-20 08:02 | Urology Progress Note ---
Assessment/Plan Status: stable Assessment/Plan: 1. Hematuria. 2. End-stage renal disease, on hemodialysis. 3. History of lower urinary tract symptoms. 4. Possible neurogenic bladder. 5. Proteinuria. 6. Pyuria. monitor clinically HD per rn mds coordinator cont with abx as ordered on ASA monitor h/h cysto electively f/u on blood cx Subjective Allergies: Coded Allergies: No Known Allergies (Unverified , 12/16/20) Subjective all noted no bleeding by report Objective Last 24 Hour Vital Signs Date Time Temp Pulse Resp B/P (MAP) Pulse Ox O2 Delivery O2 Flow Rate FiO2 12/20/20 04:00 82 12/20/20 04:00 99.0 87 18 146/68 (94) 92 12/20/20 00:00 82 12/20/20 00:00 98.6 84 17 148/69 (95) 91 12/19/20 21:08 91 133/62 12/19/20 21:00 Room Air 12/19/20 20:00 97.6 91 19 133/62 (85) 91 12/19/20 20:00 77 12/19/20 16:00 97.8 91 18 151/55 (87) 91 12/19/20 16:00 68 12/19/20 12:00 82 12/19/20 12:00 96.7 51 19 134/80 (98) 93 12/19/20 09:00 Room Air 12/19/20 08:11 69 12/19/20 08:11 69 116/72 Intake and Output 0 12/19/20 12/20/20 19:00 07:00 Intake Total 280 ml 100 ml Output Total 2000 ml Balance -1720 ml 100 ml Intake Oral 280 ml 100 ml Output Urine Total 2000 ml # Voids 6 2 # Bowel Movements 4 Microbiology Date/Time Source Procedure Growth Status 12/16/20 03:00 Rectum - Final NO CARBAPENEM-RESISTANT ENTEROBACTERI... Complete 12/16/20 03:00 Nasal Nares MRSA Culture - Final NO METHICILLIN RESISTANT STAPH AUREUS... Complete 12/16/20 01:15 Blood Blood Culture - Preliminary NO GROWTH AFTER 72 HOURS Resulted Current Medications Medications (Trade) Dose Ordered Sig/Mohit Route PRN Reason Start Time Stop Time Status Last Admin Dose Admin Acetaminophen (Tylenol) 650 mg Q4H PRN ORAL Mild Pain (Pain Scale 1-3) 12/16/20 06:45 01/15/21 06:44 12/18/20 20:49 Al Hydroxide/Mg Hydroxide (Mylanta) 30 ml Q4H PRN ORAL Abdominal cramps 12/16/20 06:45 01/15/21 06:44 Amiodarone HCl (Cordarone) 200 mg EVERY 12 HOURS ORAL 12/16/20 15:00 03/16/21 14:59 12/19/20 21:07 Aspirin (Ecotrin) 81 mg DAILY ORAL 12/17/20 09:00 01/31/21 08:59 12/19/20 08:11 Atorvastatin Calcium (Lipitor) 40 mg BEDTIME ORAL 12/16/20 21:00 03/16/21 20:59 12/19/20 21:08 Ceftriaxone Sodium 1 gm/ Dextrose 55 ml @ 110 mls/hr DAILY IVPB 12/17/20 09:00 12/24/20 08:59 12/19/20 09:16 Digoxin (Lanoxin) 0.125 mg DAILY ORAL 12/17/20 09:00 03/17/21 08:59 12/19/20 08:11 Donepezil HCl (Aricept) 10 mg DAILY ORAL 12/17/20 09:00 01/16/21 08:59 12/19/20 08:11 Escitalopram Oxalate (Lexapro) 5 mg DAILY ORAL 12/16/20 15:00 01/15/21 14:59 12/19/20 08:10 Loperamide HCl (Imodium) 2 mg QIDPRN PRN ORAL Diarrhea 12/19/20 17:45 01/18/21 17:44 12/20/20 01:07 Memantine (Namenda) 10 mg TWICE A DAY ORAL 12/16/20 18:00 01/15/21 17:59 12/19/20 17:08 Metoprolol Tartrate (Lopressor) 50 mg Q12HR ORAL 12/16/20 21:00 03/16/21 20:59 12/19/20 21:08 Pantoprazole (Protonix) 40 mg DAILY ORAL 12/16/20 09:00 01/15/21 08:59 12/19/20 08:10 Laboratory Tests 12/20/20 06:13: White Blood Count 6.6, Red Blood Count 3.76L, Hemoglobin 10.3L, Hematocrit 34.5L , Mean Corpuscular Volume 92, Mean Corpuscular Hemoglobin 27.3, Mean Corpuscular Hemoglobin Concent 29.8L, Red Cell Distribution Width 19.0H, Platelet Count 192, Mean Platelet Volume 7.6, Neutrophils (%) (Auto) 77.9H, Lymphocytes (%) (Auto) 10.0L, Monocytes (%) (Auto) 7.3, Eosinophils (%) (Auto) 4.0H, Basophils (%) (Auto) 0.8 Height (Feet): 5 Height (Inches): 2.00 Weight (Pounds): 155 Objective exam stable Get Dorado MD Dec 20, 2020 08:02
[2020-12-20] MEDS: Donepezil 10mg tab ORAL SCH (08:21)
[2020-12-20] MEDS: Aspirin EC 81mg tab ORAL SCH (08:21)
[2020-12-20] MEDS: cefTRIAXone 1gm/D5W 55ml IVPB SCH ×2 (08:21)
[2020-12-20] MEDS: Memantine 10mg tab ORAL SCH ×2 (08:21→17:10)
[2020-12-20] MEDS: Digoxin 0.125mg tab ORAL SCH (08:21)
[2020-12-20] MEDS: Amiodarone 200mg tab ORAL SCH ×2 (08:21→21:25)
[2020-12-20] MEDS: Metoprolol Tartrate 50mg tab ORAL SCH ×2 (08:22→21:26)
--- NOTE | 2020-12-20 08:25 | NUR ---
RD ASSESSMENT & RECOMMENDATIONS SEE CARE ACTIVITY FOR COMPLETE ASSESSMENT DAILY ESTIMATED NEEDS: Needs based on ESRD on HD, 51kg abw 30-35 kcals/kg 9529-6188 total kcals 1.2-1.8 g protein/kg 61-92 g total protein Fluid per MD, on HD NUTRITION DIAGNOSIS: Increased kcal and pro needs r/t renal dysfunction as evidenced by pt w/ ESRD on HD CURRENT DIET: Renal diet, ms finely chopped PO DIET RECOMMENDATIONS: Maintain Renal diet/ texture per SET UP / OPERATOR ADDITIONAL RECOMMENDATIONS: 1) Obtain a calibrated bed scale wt POST HD 2) Monitor for continued good po intake 3) SET UP / OPERATOR eval for appropriate texture, currently on finely chopped 4) High pro snacks BID as tolerated
--- NOTE | 2020-12-20 09:05 | NUR ---
CASE MANAGEMENT:REVIEW 12/20/20 SI: CHF. AFLUTTER. ESRD COAGULOPATHY W/ECCHYMOSES 97.2 83 18 150/78 92% ON RA H/H-10.3/34.5 BUN+47 CR+7.0 IS:IV ROCEPHIN Q24 DIGOXIN PO QD ARICEPT PO QD ASA PO QD LOPRESSOR PO Q12 LIPITOR PO QHS NAMENDA PO BID AMIODARONE PO Q12 LEXAPRO PO QD PROTONIX PO QD : TELEMETRY STATUS DCP: FROM HOME
[2020-12-20 12:00] VITALS: BP 132/61
--- NOTE | 2020-12-20 14:31 | Cardiac Electrophysiology PN ---
Assessment/Plan Assessment/Plan 1. Atrial flutter with rapid ventricular response. Ruled out for [place] On digoxin 0.125 mg po daily, metoprolol 50 mg bid and amiodarone 200 mg b.i.d. Digoxin level 1.3. Off anticoagulation due to diffuse bilateral ecchymosis. Hemoglobin of 8.5. In the long run, the patient would benefit from atrial flutter ablation, which is the curative approach. 2. End-stage renal disease, on hemodialysis. 3. Hypertension. On Lopressor 50 bid 4. Hyperlipidemia, on Lipitor. 5. Diffuse ecchymoses of lower extremity, currently off anticoagulation. Subjective Subjective Alert in NAD. In atrial flutter with CVR 80-90s. S/P HD today Right arm AVF oozing Objective Last 24 Hour Vital Signs Date Time Temp Pulse Resp B/P (MAP) Pulse Ox O2 Delivery O2 Flow Rate FiO2 12/20/20 12:00 97.0 81 18 132/61 (84) 97 12/20/20 12:00 86 12/20/20 09:00 Room Air 12/20/20 08:22 82 146/68 12/20/20 08:21 83 12/20/20 08:00 97.2 83 18 150/78 (102) 92 12/20/20 08:00 82 12/20/20 04:00 82 12/20/20 04:00 99.0 87 18 146/68 (94) 92 12/20/20 00:00 82 12/20/20 00:00 98.6 84 17 148/69 (95) 91 12/19/20 21:08 91 133/62 12/19/20 21:00 Room Air 12/19/20 20:00 97.6 91 19 133/62 (85) 91 12/19/20 20:00 77 12/19/20 16:00 97.8 91 18 151/55 (87) 91 12/19/20 16:00 68 Intake and Output 12/19/20 12/20/20 19:00 07:00 Intake Total 280 ml 100 ml Output Total 2000 ml Balance -1720 ml 100 ml Intake Oral 280 ml 100 ml Output Urine Total 2000 ml # Voids 6 2 # Bowel Movements 4 Laboratory Tests Test 12/20/20 06:13 White Blood Count 6.6 K/UL (4.8-10.8) Red Blood Count 3.76 M/UL (4.20-5.40) L Hemoglobin 10.3 G/DL (12.0-16.0) L Hematocrit 34.5 % (37.0-47.0) L Mean Corpuscular Volume 92 FL (80-99) Mean Corpuscular Hemoglobin 27.3 PG (27.0-31.0) Mean Corpuscular Hemoglobin Concent 29.8 G/DL (32.0-36.0) L Red Cell Distribution Width 19.0 % (11.6-14.8) H Platelet Count 192 K/UL (150-450) Mean Platelet Volume 7.6 FL (6.5-10.1) Neutrophils (%) (Auto) 77.9 % (45.0-75.0) H Lymphocytes (%) (Auto) 10.0 % (20.0-45.0) L Monocytes (%) (Auto) 7.3 % (1.0-10.0) Eosinophils (%) (Auto) 4.0 % (0.0-3.0) H Basophils (%) (Auto) 0.8 % (0.0-2.0) Objective HEAD AND NECK: Shows mild JVD. LUNGS: Decreased breath sounds. CARDIOVASCULAR: Irregular S1 and S2 with no gallop or murmur. ABDOMEN: Soft. EXTREMITIES: Bilateral ecchymosis of lower extremity, left more than right. Devon Zuluaga MD Dec 20, 2020 14:31
[2020-12-20 16:00] VITALS: BP 140/59
--- NOTE | 2020-12-20 16:44 | Nephrology Progress Note ---
Assessment/Plan Plan A. Fib - per Card. ESRD - HD TTS. Now MWF. Changed to MWF by HD RN. Subjective Subjective No new c/o Objective Objective Last 24 Hour Vital Signs Date Time Temp Pulse Resp B/P (MAP) Pulse Ox O2 Delivery O2 Flow Rate FiO2 12/20/20 16:00 92 12/20/20 16:00 97.5 74 20 140/59 (86) 92 12/20/20 12:00 97.0 81 18 132/61 (84) 97 12/20/20 12:00 86 12/20/20 09:00 Room Air 12/20/20 08:22 82 146/68 12/20/20 08:21 83 12/20/20 08:00 97.2 83 18 150/78 (102) 92 12/20/20 08:00 82 12/20/20 04:00 82 12/20/20 04:00 99.0 87 18 146/68 (94) 92 12/20/20 00:00 82 12/20/20 00:00 98.6 84 17 148/69 (95) 91 12/19/20 21:08 91 133/62 12/19/20 21:00 Room Air 12/19/20 20:00 97.6 91 19 133/62 (85) 91 12/19/20 20:00 77 Intake and Output 12/19/20 12/20/20 19:00 07:00 Intake Total 280 ml 100 ml Output Total 2000 ml Balance -1720 ml 100 ml Intake Oral 280 ml 100 ml Output Urine Total 2000 ml # Voids 6 2 # Bowel Movements 4 Laboratory Tests 12/20/20 06:13: White Blood Count 6.6, Red Blood Count 3.76L, Hemoglobin 10.3L, Hematocrit 34.5L , Mean Corpuscular Volume 92, Mean Corpuscular Hemoglobin 27.3, Mean Corpuscular Hemoglobin Concent 29.8L, Red Cell Distribution Width 19.0H, Platelet Count 192, Mean Platelet Volume 7.6, Neutrophils (%) (Auto) 77.9H, Lymphocytes (%) (Auto) 10.0L, Monocytes (%) (Auto) 7.3, Eosinophils (%) (Auto) 4.0H, Basophils (%) (Auto) 0.8 Height (Feet): 5 Height (Inches): 2.00 Weight (Pounds): 155 Objective CV Irr Lungs CTA Abd SNT. BS + E No CCE Hussein Gonzalez MD Dec 20, 2020 16:44
--- NOTE | 2020-12-20 16:49 | Pulmonology Progress Note ---
Subjective ROS Limited/Unobtainable: Yes Allergies: Coded Allergies: No Known Allergies (Unverified , 12/16/20) All Systems: reviewed and negative except above Subjective care noted no distress controlled Objective Last 24 Hour Vital Signs Date Time Temp Pulse Resp B/P (MAP) Pulse Ox O2 Delivery O2 Flow Rate FiO2 12/20/20 16:00 92 12/20/20 16:00 97.5 74 20 140/59 (86) 92 12/20/20 12:00 97.0 81 18 132/61 (84) 97 12/20/20 12:00 86 12/20/20 09:00 Room Air 12/20/20 08:22 82 146/68 12/20/20 08:21 83 12/20/20 08:00 97.2 83 18 150/78 (102) 92 12/20/20 08:00 82 12/20/20 04:00 82 12/20/20 04:00 99.0 87 18 146/68 (94) 92 12/20/20 00:00 82 12/20/20 00:00 98.6 84 17 148/69 (95) 91 12/19/20 21:08 91 133/62 12/19/20 21:00 Room Air 12/19/20 20:00 97.6 91 19 133/62 (85) 91 12/19/20 20:00 77 Intake and Output 12/19/20 12/20/20 19:00 07:00 Intake Total 280 ml 100 ml Output Total 2000 ml Balance -1720 ml 100 ml Intake Oral 280 ml 100 ml Output Urine Total 2000 ml # Voids 6 2 # Bowel Movements 4 Objective WDWN NAD clear breath sounds bilaterally without rhonchi or wheeze S1S2 iRRR without MRG NABS nontender no CCE nonfocal Laboratory Tests 12/20/20 06:13: White Blood Count 6.6, Red Blood Count 3.76L, Hemoglobin 10.3L, Hematocrit 34.5L , Mean Corpuscular Volume 92, Mean Corpuscular Hemoglobin 27.3, Mean Corpuscular Hemoglobin Concent 29.8L, Red Cell Distribution Width 19.0H, Platelet Count 192, Mean Platelet Volume 7.6, Neutrophils (%) (Auto) 77.9H, Lymphocytes (%) (Auto) 10.0L, Monocytes (%) (Auto) 7.3, Eosinophils (%) (Auto) 4.0H, Basophils (%) (Auto) 0.8 Current Medications Medications (Trade) Dose Ordered Sig/Mohit Route PRN Reason Start Time Stop Time Status Last Admin Dose Admin Acetaminophen (Tylenol) 650 mg Q4H PRN ORAL Mild Pain (Pain Scale 1-3) 12/16/20 06:45 01/15/21 06:44 12/18/20 20:49 Al Hydroxide/Mg Hydroxide (Mylanta) 30 ml Q4H PRN ORAL Abdominal cramps 12/16/20 06:45 01/15/21 06:44 Amiodarone HCl (Cordarone) 200 mg EVERY 12 HOURS ORAL 12/16/20 15:00 03/16/21 14:59 12/20/20 08:21 Aspirin (Ecotrin) 81 mg DAILY ORAL 12/17/20 09:00 01/31/21 08:59 12/20/20 08:21 Atorvastatin Calcium (Lipitor) 40 mg BEDTIME ORAL 12/16/20 21:00 03/16/21 20:59 12/19/20 21:08 Ceftriaxone Sodium 1 gm/ Dextrose 55 ml @ 110 mls/hr DAILY IVPB 12/17/20 09:00 12/24/20 08:59 12/20/20 08:21 Digoxin (Lanoxin) 0.125 mg DAILY ORAL 12/17/20 09:00 03/17/21 08:59 12/20/20 08:21 Donepezil HCl (Aricept) 10 mg DAILY ORAL 12/17/20 09:00 01/16/21 08:59 12/20/20 08:21 Escitalopram Oxalate (Lexapro) 5 mg DAILY ORAL 12/16/20 15:00 01/15/21 14:59 12/20/20 08:22 Loperamide HCl (Imodium) 2 mg QIDPRN PRN ORAL Diarrhea 12/19/20 17:45 01/18/21 17:44 12/20/20 01:07 Memantine (Namenda) 10 mg TWICE A DAY ORAL 12/16/20 18:00 01/15/21 17:59 12/20/20 08:21 Metoprolol Tartrate (Lopressor) 50 mg Q12HR ORAL 12/16/20 21:00 03/16/21 20:59 12/19/20 21:08 Pantoprazole (Protonix) 40 mg DAILY ORAL 12/16/20 09:00 01/15/21 08:59 12/20/20 08:21 Assessment/Plan Assessment/Plan IMPRESSION dyspnea ESRD pleural effusion dementia chronic encephalopathy hyperglycemia anemia afib cardiomegaly hematuria PLAN urology noted HD per renal tele care for now d/w nursing d/w consultants rate control nutrition monitor fluid status dc plan as per CM impression, plan, and exam edited and reviewed in detail care discussed with Maicol Noble MD Dec 20, 2020 16:49
--- NOTE | 2020-12-20 17:19 | General Progress Note ---
Subjective ROS Limited/Unobtainable: No Constitutional: Reports: no symptoms HEENT: Reports: no symptoms Cardiovascular: Reports: no symptoms Respiratory: Reports: no symptoms Gastrointestinal/Abdominal: Reports: no symptoms Genitourinary: Reports: hematuria Neurologic/Psychiatric: Reports: no symptoms Endocrine: Reports: no symptoms Hematologic/Lymphatic: Reports: no symptoms Allergies: Coded Allergies: No Known Allergies (Unverified , 12/16/20) All Systems: reviewed and negative except above Subjective no complaints. no melena or brbpr. +hematuria. UA noted. off anticoag due to bruising. h/h improved. currently afib but rate controlled. denies chest pain or sob. no abd pain Objective Last 24 Hour Vital Signs Date Time Temp Pulse Resp B/P (MAP) Pulse Ox O2 Delivery O2 Flow Rate FiO2 12/20/20 16:00 92 12/20/20 16:00 97.5 74 20 140/59 (86) 92 12/20/20 12:00 97.0 81 18 132/61 (84) 97 12/20/20 12:00 86 12/20/20 09:00 Room Air 12/20/20 08:22 82 146/68 12/20/20 08:21 83 12/20/20 08:00 97.2 83 18 150/78 (102) 92 12/20/20 08:00 82 12/20/20 04:00 82 12/20/20 04:00 99.0 87 18 146/68 (94) 92 12/20/20 00:00 82 12/20/20 00:00 98.6 84 17 148/69 (95) 91 12/19/20 21:08 91 133/62 12/19/20 21:00 Room Air 12/19/20 20:00 97.6 91 19 133/62 (85) 91 12/19/20 20:00 77 Intake and Output 12/19/20 12/20/20 19:00 07:00 Intake Total 280 ml 100 ml Output Total 2000 ml Balance -1720 ml 100 ml Intake Oral 280 ml 100 ml Output Urine Total 2000 ml # Voids 6 2 # Bowel Movements 4 Laboratory Tests 12/20/20 06:13: White Blood Count 6.6, Red Blood Count 3.76L, Hemoglobin 10.3L, Hematocrit 34.5L , Mean Corpuscular Volume 92, Mean Corpuscular Hemoglobin 27.3, Mean Corpuscular Hemoglobin Concent 29.8L, Red Cell Distribution Width 19.0H, Platelet Count 192, Mean Platelet Volume 7.6, Neutrophils (%) (Auto) 77.9H, Lymphocytes (%) (Auto) 10.0L, Monocytes (%) (Auto) 7.3, Eosinophils (%) (Auto) 4.0H, Basophils (%) (Auto) 0.8 Height (Feet): 5 Height (Inches): 2.00 Weight (Pounds): 155 Objective General Appearance: WD/WN, alert Neck: supple Cardiovascular: regular rhythm Respiratory/Chest: lungs clear Abdomen: normal bowel sounds, non tender, soft, no organomegaly Edema: no edema noted Arm (L), no edema noted Arm (R) 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, no motor/sensory deficits, alert, responsive Skin: normal pigmentation Assessment/Plan Problem List: (1) Hypertension ICD Codes: I10 - Essential (primary) hypertension SNOMED: 41290071 (2) Hyperlipidemia ICD Codes: E78.5 - Hyperlipidemia, unspecified SNOMED: 97300618 (3) ESRD (end-stage 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
--- NOTE | 2020-12-20 19:25 | NUR ---
NURSE NOTES: Received report from ZEKE Mercer; AOX4, comfortable in bed; Indonesian speaking; On room air in no acute distress; with R hand IV site 22 gauge saline locked; intact and patent; HD done in AM today 2L out; L upper AV fistula with dressing, no bleeding noted; + bruit and thrill; call light within reach, side rails x 2; bed locked and in low position; will continue to monitor.
--- NOTE | 2020-12-20 19:30 | NUR ---
NURSE HAND-OFF REPORT: Important Events on Shift:[HD today 2L out, safety and comfort,] Patient Status: [stable] Diet: [renal] Pending Orders: [] Pending Results/Labs:[] Pending MD notification:[] Latest Vital Signs: Temperature 97.5 , Pulse 92 , B/P 140 /59 , Respiratory Rate 20 , O2 SAT 92 , Room Air, O2 Flow Rate . Vital Sign Comment: [] EKG Rhythm: Atrial Fibrillation Rhythm change?: N MD Notified?: - MD Response: Latest Huizar Fall Score: 75 Fall Risk: High Risk Safety Measures: Call light Within Reach, Bed Alarm Zone 2, Side Rails Side Rails x3, Bed position Low and Locked. Fall Precautions: Yellow Socks Yellow Gown Door Sign Patient Fall Education Report given to [ZEKE Green].
[2020-12-20 20:00] VITALS: BP 142/60
[2020-12-20] MEDS: Atorvastatin 20mg tab ORAL SCH (21:26)
[2020-12-21] VITALS: BP 139/64
--- NOTE | 2020-12-21 01:54 | Cardiology Progress Note ---
Subjective DATE OF SERVICE: Dec 20, 2019 Has some SOB. Monitor: Atrial flutter - mostly rate controlled Off anticoagulation due to bloody stool, hematuria, and bruising. Objective Last 24 Hour Vital Signs Date Time Temp Pulse Resp B/P (MAP) Pulse Ox O2 Delivery O2 Flow Rate FiO2 12/20/20 21:26 87 142/60 12/20/20 16:00 92 12/20/20 16:00 97.5 74 20 140/59 (86) 92 12/20/20 12:00 97.0 81 18 132/61 (84) 97 12/20/20 12:00 86 12/20/20 09:00 Room Air 12/20/20 08:22 82 146/68 12/20/20 08:21 83 12/20/20 08:00 97.2 83 18 150/78 (102) 92 12/20/20 08:00 82 12/20/20 04:00 82 12/20/20 04:00 99.0 87 18 146/68 (94) 92 ROS: unchanged from my initial evaluation HEENT: normal ENT inspection RHYTHM: Afib LUNGS: lungs clear bilaterally CARDIAC: normal S1 and S2, irregularly irregular ABDOMEN: non tender, soft EXTREMITIES: normal range of motion, non-tender, trace edema, other - ecchymoses Laboratory Tests Test 12/20/20 06:13 White Blood Count 6.6 K/UL (4.8-10.8) Red Blood Count 3.76 M/UL (4.20-5.40) L Hemoglobin 10.3 G/DL (12.0-16.0) L Hematocrit 34.5 % (37.0-47.0) L Mean Corpuscular Volume 92 FL (80-99) Mean Corpuscular Hemoglobin 27.3 PG (27.0-31.0) Mean Corpuscular Hemoglobin Concent 29.8 G/DL (32.0-36.0) L Red Cell Distribution Width 19.0 % (11.6-14.8) H Platelet Count 192 K/UL (150-450) Mean Platelet Volume 7.6 FL (6.5-10.1) Neutrophils (%) (Auto) 77.9 % (45.0-75.0) H Lymphocytes (%) (Auto) 10.0 % (20.0-45.0) L Monocytes (%) (Auto) 7.3 % (1.0-10.0) Eosinophils (%) (Auto) 4.0 % (0.0-3.0) H Basophils (%) (Auto) 0.8 % (0.0-2.0) Assessment/Plan Assessment/Plan PAFibrillation Ac/chr diastolic CHF with pleural effusion ESRD on hemodialysis Dementia GI bleeding Hematuria Off anticoagulation; reassess aspirin if cont'd bleeding sx's Anti-arrhythmics with titration HD/UF Titrate anti-failure and rate-control regimen based on clinical parameters. Dilip Seaman MD Dec 21, 2020 01:54
[2020-12-21 04:00] VITALS: BP 141/71
--- NOTE | 2020-12-21 06:35 | NUR ---
NURSE NOTES: Per Merly from lab, pt is hard stick and unable to obtain blood specimen; will inform AM RN.
--- NOTE | 2020-12-21 07:00 | NUR ---
NURSE HAND-OFF REPORT: Important Events on Shift: N/A, hard stick per security screener, unable to draw AM lab Patient Status: stable Aox2-3 Diet:renal mechanical soft chopped Pending Orders: CBC Pending Results/Labs: am labs Pending MD notification:N Latest Vital Signs: Temperature 98.9 , Pulse 83 , B/P 141 /71 , Respiratory Rate 18 , O2 SAT 92 , Room Air, O2 Flow Rate . Vital Sign Comment: stable EKG Rhythm: Atrial Fibrillation Rhythm change?: N MD Notified?: - MD Response: Latest Huizar Fall Score: 75 Fall Risk: High Risk Safety Measures: Call light Within Reach, Bed Alarm Zone 2, Side Rails Side Rails x3, Bed position Low and Locked. Fall Precautions: Yellow Socks Yellow Gown Door Sign Patient Fall Education Report given to ZEKE Queen.
--- NOTE | 2020-12-21 07:05 | NUR ---
NURSE NOTES: pt in bed alert and awake. verbally responsive. no acute distress noted at this time. call light within reach.
[2020-12-21 08:00] VITALS: BP 130/72
--- NOTE | 2020-12-21 08:18 | General Progress Note ---
Subjective ROS Limited/Unobtainable: No Constitutional: Reports: malaise, weakness HEENT: Reports: no symptoms Cardiovascular: Reports: no symptoms Respiratory: Reports: no symptoms Gastrointestinal/Abdominal: Reports: no symptoms Genitourinary: Reports: no symptoms Neurologic/Psychiatric: Reports: no symptoms Endocrine: Reports: no symptoms Hematologic/Lymphatic: Reports: no symptoms Allergies: Coded Allergies: No Known Allergies (Unverified , 12/16/20) All Systems: reviewed and negative except above Subjective no events. hematuria resolved. remains afib but rate controlled. no chest pain or sob. no fever or chills. unable to draw labs this am. Objective Last 24 Hour Vital Signs Date Time Temp Pulse Resp B/P (MAP) Pulse Ox O2 Delivery O2 Flow Rate FiO2 12/21/20 04:00 83 12/21/20 04:00 98.9 83 18 141/71 (94) 92 12/21/20 00:00 98.9 84 18 139/64 (89) 93 12/21/20 00:00 84 12/20/20 21:26 87 142/60 12/20/20 21:00 Room Air 12/20/20 20:00 83 12/20/20 20:00 99.1 74 18 142/60 (87) 92 12/20/20 16:00 92 12/20/20 16:00 97.5 74 20 140/59 (86) 92 12/20/20 12:00 97.0 81 18 132/61 (84) 97 12/20/20 12:00 86 12/20/20 09:00 Room Air 12/20/20 08:22 82 146/68 12/20/20 08:21 83 Intake and Output 12/20/20 12/21/20 19:00 07:00 Intake Total 250 ml 240 ml Output Total 2030 ml Balance -1780 ml 240 ml Intake Oral 250 ml 240 ml Output Urine Total 30 ml Hemodialysis UF 2000 ml # Voids 4 1 # Bowel Movements 2 Height (Feet): 5 Height (Inches): 2.00 Weight (Pounds): 155 Objective General Appearance: WD/WN, alert Neck: supple Cardiovascular: regular rhythm Respiratory/Chest: lungs clear Abdomen: normal bowel sounds, non tender, soft, no organomegaly Edema: no edema noted Arm (L), no edema noted Arm (R) 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, no motor/sensory deficits, alert, responsive Skin: normal pigmentation Assessment/Plan Problem List: (1) Hypertension ICD Codes: I10 - Essential (primary) hypertension SNOMED: 18908548 (2) Hyperlipidemia ICD Codes: E78.5 - Hyperlipidemia, unspecified SNOMED: 27682408 (3) 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 currently off AC cont PPI asa with caution may need to hold if any additional rectal bleeding tele amiodarone iv abx monitor cxr dvt/stress ulcer prophylaxis try to redraw labs later today Anil Reynoso MD Dec 21, 2020 08:18
--- NOTE | 2020-12-21 09:01 | Urology Progress Note ---
Assessment/Plan Status: stable Assessment/Plan: 1. Hematuria. 2. End-stage renal disease, on hemodialysis. 3. History of lower urinary tract symptoms. 4. Possible neurogenic bladder. 5. Proteinuria. 6. Pyuria. monitor clinically HD per manager front cont with abx as ordered on ASA monitor h/h cysto electively f/u on blood cx Subjective Allergies: Coded Allergies: No Known Allergies (Unverified , 12/16/20) Subjective all noted no bleeding by report Objective Last 24 Hour Vital Signs Date Time Temp Pulse Resp B/P (MAP) Pulse Ox O2 Delivery O2 Flow Rate FiO2 12/21/20 04:00 83 12/21/20 04:00 98.9 83 18 141/71 (94) 92 12/21/20 00:00 98.9 84 18 139/64 (89) 93 12/21/20 00:00 84 12/20/20 21:26 87 142/60 12/20/20 21:00 Room Air 12/20/20 20:00 83 12/20/20 20:00 99.1 74 18 142/60 (87) 92 12/20/20 16:00 92 12/20/20 16:00 97.5 74 20 140/59 (86) 92 12/20/20 12:00 97.0 81 18 132/61 (84) 97 12/20/20 12:00 86 Intake and Output 12/20/20 12/21/20 19:00 07:00 Intake Total 250 ml 240 ml Output Total 2030 ml Balance -1780 ml 240 ml Intake Oral 250 ml 240 ml Output Urine Total 30 ml Hemodialysis UF 2000 ml # Voids 4 1 # Bowel Movements 2 Microbiology Date/Time Source Procedure Growth Status 12/16/20 03:00 Rectum - Final NO CARBAPENEM-RESISTANT ENTEROBACTERI... Complete 12/16/20 03:00 Nasal Nares MRSA Culture - Final NO METHICILLIN RESISTANT STAPH AUREUS... Complete 12/16/20 01:15 Blood Blood Culture - Preliminary NO GROWTH AFTER 4 DAYS Resulted Current Medications Medications (Trade) Dose Ordered Sig/Mohit Route PRN Reason Start Time Stop Time Status Last Admin Dose Admin Acetaminophen (Tylenol) 650 mg Q4H PRN ORAL Mild Pain (Pain Scale 1-3) 12/16/20 06:45 01/15/21 06:44 12/18/20 20:49 Al Hydroxide/Mg Hydroxide (Mylanta) 30 ml Q4H PRN ORAL Abdominal cramps 12/16/20 06:45 01/15/21 06:44 Amiodarone HCl (Cordarone) 200 mg EVERY 12 HOURS ORAL 12/16/20 15:00 03/16/21 14:59 12/20/20 21:25 Aspirin (Ecotrin) 81 mg DAILY ORAL 12/17/20 09:00 01/31/21 08:59 12/20/20 08:21 Atorvastatin Calcium (Lipitor) 40 mg BEDTIME ORAL 12/16/20 21:00 03/16/21 20:59 12/20/20 21:26 Ceftriaxone Sodium 1 gm/ Dextrose 55 ml @ 110 mls/hr DAILY IVPB 12/17/20 09:00 12/24/20 08:59 12/20/20 08:21 Digoxin (Lanoxin) 0.125 mg DAILY ORAL 12/17/20 09:00 03/17/21 08:59 12/20/20 08:21 Donepezil HCl (Aricept) 10 mg DAILY ORAL 12/17/20 09:00 01/16/21 08:59 12/20/20 08:21 Escitalopram Oxalate (Lexapro) 5 mg DAILY ORAL 12/16/20 15:00 01/15/21 14:59 12/20/20 08:22 Loperamide HCl (Imodium) 2 mg QIDPRN PRN ORAL Diarrhea 12/19/20 17:45 01/18/21 17:44 12/20/20 01:07 Memantine (Namenda) 10 mg TWICE A DAY ORAL 12/16/20 18:00 01/15/21 17:59 12/20/20 17:10 Metoprolol Tartrate (Lopressor) 50 mg Q12HR ORAL 12/16/20 21:00 03/16/21 20:59 12/20/20 21:26 Pantoprazole (Protonix) 40 mg DAILY ORAL 12/16/20 09:00 01/15/21 08:59 12/20/20 08:21 Height (Feet): 5 Height (Inches): 2.00 Weight (Pounds): 155 Objective exam stable Get Dorado MD Dec 21, 2020 09:01
--- NOTE | 2020-12-21 09:32 | Cardiac Electrophysiology PN ---
Assessment/Plan Assessment/Plan 1. Atrial flutter with rapid ventricular response. Ruled out for OR DC digoxin. Continue metoprolol 50 mg bid and decrease amiodarone to 200 mg po daily Digoxin level 1.3. Off anticoagulation due to diffuse bilateral ecchymosis. Hemoglobin of 8.5. In the long run, the patient would benefit from atrial flutter ablation, which is the curative approach. 2. End-stage renal disease, on hemodialysis. 3. Hypertension. On Lopressor 50 bid 4. Hyperlipidemia, on Lipitor. 5. Diffuse ecchymoses of lower extremity, currently off anticoagulation. JANNY RN and Dr Sandoval Subjective Subjective Alert in NAD. In atrial flutter with CVR 80-90s. S/P HD 2 liter out yesterday Objective Last 24 Hour Vital Signs Date Time Temp Pulse Resp B/P (MAP) Pulse Ox O2 Delivery O2 Flow Rate FiO2 12/21/20 08:00 100.3 98 17 130/72 (91) 93 12/21/20 04:00 83 12/21/20 04:00 98.9 83 18 141/71 (94) 92 12/21/20 00:00 98.9 84 18 139/64 (89) 93 12/21/20 00:00 84 12/20/20 21:26 87 142/60 12/20/20 21:00 Room Air 12/20/20 20:00 83 12/20/20 20:00 99.1 74 18 142/60 (87) 92 12/20/20 16:00 92 12/20/20 16:00 97.5 74 20 140/59 (86) 92 12/20/20 12:00 97.0 81 18 132/61 (84) 97 12/20/20 12:00 86 Intake and Output 12/20/20 12/21/20 19:00 07:00 Intake Total 250 ml 240 ml Output Total 2030 ml Balance -1780 ml 240 ml Intake Oral 250 ml 240 ml Output Urine Total 30 ml Hemodialysis UF 2000 ml # Voids 4 1 # Bowel Movements 2 Objective HEAD AND NECK: Shows mild JVD. LUNGS: Decreased breath sounds. CARDIOVASCULAR: Irregular S1 and S2 with no gallop or murmur. ABDOMEN: Soft. EXTREMITIES: Bilateral ecchymosis of lower extremity, left more than right. Devon Zuluaga MD Dec 21, 2020 09:32
[2020-12-21] MEDS: cefTRIAXone 1gm/D5W 55ml IVPB SCH ×2 (09:39)
[2020-12-21] MEDS: Donepezil 10mg tab ORAL SCH (09:39)
[2020-12-21] MEDS: Aspirin EC 81mg tab ORAL SCH (09:39)
[2020-12-21] MEDS: Metoprolol Tartrate 50mg tab ORAL SCH (09:39)
[2020-12-21] MEDS: Memantine 10mg tab ORAL SCH (09:40)
[2020-12-21] MEDS ORDERED: Amiodarone 200mg tab ORAL SCH (09:45)
--- NOTE | 2020-12-21 09:47 | Pulmonology Progress Note ---
Subjective ROS Limited/Unobtainable: No Allergies: Coded Allergies: No Known Allergies (Unverified , 12/16/20) All Systems: reviewed and negative except above Subjective care noted no distress controlled wants to go home d/w EP Objective Last 24 Hour Vital Signs Date Time Temp Pulse Resp B/P (MAP) Pulse Ox O2 Delivery O2 Flow Rate FiO2 12/21/20 08:00 100.3 98 17 130/72 (91) 93 12/21/20 04:00 83 12/21/20 04:00 98.9 83 18 141/71 (94) 92 12/21/20 00:00 98.9 84 18 139/64 (89) 93 12/21/20 00:00 84 12/20/20 21:26 87 142/60 12/20/20 21:00 Room Air 12/20/20 20:00 83 12/20/20 20:00 99.1 74 18 142/60 (87) 92 12/20/20 16:00 92 12/20/20 16:00 97.5 74 20 140/59 (86) 92 12/20/20 12:00 97.0 81 18 132/61 (84) 97 12/20/20 12:00 86 Intake and Output 12/20/20 12/21/20 19:00 07:00 Intake Total 250 ml 240 ml Output Total 2030 ml Balance -1780 ml 240 ml Intake Oral 250 ml 240 ml Output Urine Total 30 ml Hemodialysis UF 2000 ml # Voids 4 1 # Bowel Movements 2 Objective WDWN NAD clear breath sounds bilaterally without rhonchi or wheeze S1S2 iRRR without MRG NABS nontender no CCE nonfocal Current Medications Medications (Trade) Dose Ordered Sig/Mohit Route PRN Reason Start Time Stop Time Status Last Admin Dose Admin Acetaminophen (Tylenol) 650 mg Q4H PRN ORAL Mild Pain (Pain Scale 1-3) 12/16/20 06:45 01/15/21 06:44 12/18/20 20:49 Acetaminophen (Tylenol) 650 mg Q6H PRN ORAL Temp >100.5 12/21/20 09:30 01/20/21 09:29 Al Hydroxide/Mg Hydroxide (Mylanta) 30 ml Q4H PRN ORAL Abdominal cramps 12/16/20 06:45 01/15/21 06:44 Amiodarone HCl (Cordarone) 200 mg DAILY ORAL 12/21/20 09:45 03/16/21 14:59 Aspirin (Ecotrin) 81 mg DAILY ORAL 12/17/20 09:00 01/31/21 08:59 12/20/20 08:21 Atorvastatin Calcium (Lipitor) 40 mg BEDTIME ORAL 12/16/20 21:00 03/16/21 20:59 12/20/20 21:26 Ceftriaxone Sodium 1 gm/ Dextrose 55 ml @ 110 mls/hr DAILY IVPB 12/17/20 09:00 12/24/20 08:59 12/20/20 08:21 Donepezil HCl (Aricept) 10 mg DAILY ORAL 12/17/20 09:00 01/16/21 08:59 12/20/20 08:21 Escitalopram Oxalate (Lexapro) 5 mg DAILY ORAL 12/16/20 15:00 01/15/21 14:59 12/20/20 08:22 Loperamide HCl (Imodium) 2 mg QIDPRN PRN ORAL Diarrhea 12/19/20 17:45 01/18/21 17:44 12/20/20 01:07 Memantine (Namenda) 10 mg TWICE A DAY ORAL 12/16/20 18:00 01/15/21 17:59 12/20/20 17:10 Metoprolol Tartrate (Lopressor) 50 mg Q12HR ORAL 12/16/20 21:00 03/16/21 20:59 12/20/20 21:26 Pantoprazole (Protonix) 40 mg DAILY ORAL 12/16/20 09:00 01/15/21 08:59 12/20/20 08:21 Assessment/Plan Assessment/Plan IMPRESSION dyspnea ESRD pleural effusion dementia chronic encephalopathy hyperglycemia anemia afib cardiomegaly hematuria PLAN dc today HD per renal tele care for now d/w nursing d/w consultants rate control nutrition cleared by cardiology called to pharmacy to deliver meds impression, plan, and exam edited and reviewed in detail care discussed with Maicol Noble MD Dec 21, 2020 09:47
[2020-12-21 12:00] VITALS: BP 156/76
--- NOTE | 2020-12-21 13:10 | Nephrology Progress Note ---
Assessment/Plan Plan A. Fib/flutter - per Card. ESRD - HD TTS. Now MWF. Changed to MWF by HD RN. Subjective Subjective Wants to go home. Objective Objective Last 24 Hour Vital Signs Date Time Temp Pulse Resp B/P (MAP) Pulse Ox O2 Delivery O2 Flow Rate FiO2 12/21/20 12:00 98.2 63 19 156/76 (102) 97 12/21/20 12:00 62 12/21/20 09:39 98 130/72 12/21/20 09:00 Room Air 12/21/20 08:00 84 12/21/20 08:00 100.3 98 17 130/72 (91) 93 12/21/20 04:00 83 12/21/20 04:00 98.9 83 18 141/71 (94) 92 12/21/20 00:00 98.9 84 18 139/64 (89) 93 12/21/20 00:00 84 12/20/20 21:26 87 142/60 12/20/20 21:00 Room Air 12/20/20 20:00 83 12/20/20 20:00 99.1 74 18 142/60 (87) 92 12/20/20 16:00 92 12/20/20 16:00 97.5 74 20 140/59 (86) 92 Intake and Output 12/20/20 12/21/20 19:00 07:00 Intake Total 250 ml 240 ml Output Total 2030 ml Balance -1780 ml 240 ml Intake Oral 250 ml 240 ml Output Urine Total 30 ml Hemodialysis UF 2000 ml # Voids 4 1 # Bowel Movements 2 Height (Feet): 5 Height (Inches): 2.00 Weight (Pounds): 155 Objective CV Irr Lungs CTA Abd SNT. BS + E No CCE Hussein Gonzalez MD Dec 21, 2020 13:10
--- NOTE | 2020-12-21 13:40 | NUR ---
NURSE NOTES: Patient is discharged home without any signs of distress. Patient is alert and awake. A&O X 4. verbally responsive. Respiration is even and unlabored on room air. Denies any pain. Patient has belongings; inventory paper signed. Patient did not bring home medications. Skin is clean and intact. Patient is provided with after-care instructions, provided medication teaching, and to follow-up with any MD's appointment, patient verbalized understanding of after-care instructions. IV site and wrist band removed. Patient is discharged home in company of her son via a private vehicle
--- NOTE | 2020-12-22 01:12 | Cardiology Progress Note ---
Subjective DATE OF SERVICE: Dec 21, 2020 NO SOB. Monitor: Atrial flutter - mostly rate controlled Off anticoagulation due to bloody stool, hematuria, and bruising. Objective Last 24 Hour Vital Signs Date Time Temp Pulse Resp B/P (MAP) Pulse Ox O2 Delivery O2 Flow Rate FiO2 12/21/20 12:00 98.2 63 19 156/76 (102) 97 12/21/20 12:00 62 12/21/20 09:39 98 130/72 12/21/20 09:00 Room Air 12/21/20 08:00 84 12/21/20 08:00 100.3 98 17 130/72 (91) 93 12/21/20 04:00 83 12/21/20 04:00 98.9 83 18 141/71 (94) 92 ROS: unchanged from my initial evaluation HEENT: normal ENT inspection RHYTHM: Afib LUNGS: lungs clear bilaterally CARDIAC: normal S1 and S2, irregularly irregular ABDOMEN: non tender, soft EXTREMITIES: normal range of motion, non-tender, trace edema, other - ecchymoses Assessment/Plan Assessment/Plan PAFibrillation Ac/chr diastolic CHF with pleural effusion ESRD on hemodialysis Dementia GI bleeding Hematuria Off anticoagulation; low dose aspirin as outpatient Anti-arrhythmics at current dosing HD/UF per outpatient schedule Maintain current antiHTN meds for discharge; outpatient cardiology follow up to be arranged. Dilip Seaman MD Dec 22, 2020 01:12
[2020-12-22] MEDS ORDERED: Heparin Sod 1000 units/ml 10ml IV PRN (09:00)
--- NOTE | 2020-12-22 15:58 | Discharge Summary ---
Discharge Summary Discharge Summary _ Date of admission: 12/16/2020 Date of discharge: 12/21/[address] Sandoval History of Present Illness and Brief Hospital Course Ms. Bailon is an 80-year-old female with history of ESRD on dialysis ([facility], [facility]), presented to the ED for her evaluation of diffuse bruising. Patient's daughter stated that the patient underwent dialysis 4 days prior. Over the past 2 days, the patient's daughter noticed worsening nontraumatic bruising throughout patient's body. Bruising was worse in the lower extremity, worse in the left. Her EKG was notable for atrial flutter with variable AV block. Chest x-ray was notable for cardiomegaly and trace effusion along the right minor fissure. Ultrasound of the left lower extremity was negative for DVT. Throughout her stay in the ED, her heart rate gradually increased again to 120 bpm. She was given Cardizem. Her blood pressure remained normal and she was found to be in no acute distress. Troponin was negative. She was aneuric in the ED and a Millan catheter was placed. No urine was able to be obtained. She was given ceftriaxone for suspected UTI. Given possibility of neurogenic bladder, she was recommended to have elective cystoscopy as an outpatient. Rapid COVID-19 test was negative in the ED she was admitted to the hospital for further management. For her atrial flutter with rapid ventricular response, she was placed on digoxin, metoprolol, and amiodarone. It was recommended that the patient would benefit from atrial flutter ablation in the long run for a curative approach. Given her diffuse ecchymosis, anticoagulation was held. She is to continue low- dose aspirin as an outpatient. Her initial urinalysis showed presence of blood in her urine. Anticoagulation was held off and her hematuria resolved over days On 12/21/2020, patient was alert and oriented x4 with even and nonlabored respiration on room air. She did not complain of any pain. She was medically stable for discharge and the patient requested that she be discharged home. Patient was discharged home in company of her son via a private vehicle. She is to continue dialysis as scheduled. Consultants: Cardiology Dr. Seaman Urology Dr. Dorado Nephrology Dr. Gonzalez Discharge Condition Improved and stable Final diagnoses Paroxysmal atrial fibrillation Acute on chronic diastolic CHF with pleural effusion ESRD on hemodialysis Dementia GI bleeding Hematuria hypertension Hyperlipidemia Chronic encephalopathy Hyperglycemia Cardiomegaly Pyuria Proteinuria I have been assigned to dictate discharge summary for this account. I was not involved in the patient's management Abran Mosquera Dec 22, 2020 15:58
== END 2020-12-21 13:43 | disposition home or self-care (01) | DRG 291 ==
LOC: EMR 01:09 → 2E 01:30 → EDBEDREQ 03:00 → 2E 12-19 03:25
PROC: 5A1D70Z Performance of Urinary Filtration, Intermittent, Less than 6 Hours Per Day (ICD-10-PCS; principal; 2020-12-17)
DX: I13.0 Hypertensive heart and chronic kidney disease with heart failure and stage 1 through stage 4 chronic kidney disease, or unspecified chronic kidney disease (principal); N18.6 End stage renal disease; I50.33 Acute on chronic diastolic (congestive) heart failure; G93.40 Encephalopathy, unspecified; I48.92 Unspecified atrial flutter; K92.2 Gastrointestinal hemorrhage, unspecified; I50.9 Heart failure, unspecified; E78.5 Hyperlipidemia, unspecified; I48.0 Paroxysmal atrial fibrillation; K21.9 Gastro-esophageal reflux disease without esophagitis; E11.22 Type 2 diabetes mellitus with diabetic chronic kidney disease; N18.9 Chronic kidney disease, unspecified; F03.90 Unspecified dementia, unspecified severity, without behavioral disturbance, psychotic disturbance, mood disturbance, and anxiety; Z99.2 Dependence on renal dialysis; E11.65 Type 2 diabetes mellitus with hyperglycemia; R80.9 Proteinuria, unspecified
CPT/HCPCS: 36415; 71045; 76770; 80048; 80053; 80162; 81001; 82270; 82550; 82553; 83010; 83605; 83690; 83735; 83880; 84439; 84443; 84484; 85007; 85025; 85060; 85379; 85384; 85610; 85730; 86706; 86850; 86870; 86900; 86901; 86904; 87040; 87045; 87081; 93005; 93306; 93971; 96365; 96375; 99285; J7030; U0002